=== PATIENT | female | born 1975 | race Caucasian/White ===

== ENCOUNTER → 2018-03-22 16:00 | Outpatient (CLI) | payer OTHER, SELFPAY ==
--- NOTE | 2018-03-22 16:18 | EKG12_ITS ---
Test Reason : PRE OP Blood Pressure : / mmHG Vent. Rate : 087 BPM Atrial Rate : 087 BPM P-R Int : 120 ms QRS Dur : 076 ms QT Int : 366 ms P-R-T Axes : 064 074 057 degrees QTc Int : 440 ms Normal sinus rhythm with sinus arrhythmia Normal ECG Confirmed by JUAN JOSE STALEY, VALERIE ([id number]), editor managing director GINI JACOBS ([id number]) on 03/25/2018 2:12:38 PM Referred By: Jalen Dumont Confirmed By:VALERIE INGRAM MD
--- NOTE | 2018-03-22 16:30 | RAD_ITS ---
STUDY: X-RAY CHEST REASON FOR EXAM: Female, 42 years old. Preoperative exam TECHNIQUE: Frontal and lateral views of the chest COMPARISON: None. FINDINGS: The lungs are clear. There are no pleural effusions. There is no pneumothorax. The heart is normal in size. The visualized osseous structures are within normal limits. RAD/Chest PA and Lateral IMPRESSION: No acute thoracic pathology. Electronically Signed: Jong Santoro, at 21:40 EDT Tel , Service support ,
[2018-03-22 17:37] LABS: Hemoglobin 12.6 g/dl (12.0-15.0); Mean Corp Hgb Conc 33.2 g/gl (32-36); Mean Corpuscular Hgb 26.8 pg (27.0-32.0); Mean Corpuscular Volume 80.7 fL (81-99); Mean Platelet Vol. 10.3 fl (6.2-12.0); Platelet Count 374 K/mm3 (150-450); RBC Distribution Width CV 16.1 % (11.6-14.6); Red Blood Count 4.71 M/mm3 (4.2-5.4); White Blood Count 11.5 K/mm3 (4.4-11.0)
[2018-03-22 17:42] LABS: Scan Indicated on CBC? Y/N NO
[2018-03-22 17:57] LABS: Anion Gap 10 (5-15); BUN 16 mg/dL (7-18); BUN/Creat Ratio 16.2 RATIO (10-20); Calcium,Total 9.1 mg/dL (8.5-10.1); Chloride 108 mmol/L (98-107); Creatinine, Serum 0.98 mg/dL (0.55-1.02); EST Glomerular Filtration Rate 65 mL/min (>60); Est Glom Filt Rate - Afr Amer 79 mL/min (>60); Glucose 92 mg/dL (74-106); Potassium 3.8 mmol/L (3.5-5.1); Sodium Level 145 mmol/L (136-145)
== END ==
PROVIDERS: Family Provider Nurse Practitioner Family; PCP Nurse Practitioner Family; Visit Provider Orthopaedic Surgery
DX: Z01.818 Encounter for other preprocedural examination (principal); F17.200 Nicotine dependence, unspecified, uncomplicated; Z79.899 Other long term (current) drug therapy
CPT/HCPCS: 36415; 71046; 80048; 85027; 93005

== ENCOUNTER 2021-10-31 09:21 | Emergency (ER) | payer OTHER, SELFPAY ==
[2021-10-31 09:22] VITALS: BP 127/84; PULSE 115; RESP 16; TEMP 36.2; O2SAT 98; BMI 33.3
--- NOTE | 2021-10-31 10:03 | CT_ITS ---
STUDY: CT ABDOMEN AND PELVIS WITH CONTRAST REASON FOR EXAM: Female, 46 years old. llq pain RADIATION DOSAGE (If Supplied By Facility): CTDIvol = ( 16.71 ) mGy, DLP = ( 1059.75 ) mGycm TECHNIQUE: Transaxial images were obtained from the dome of the diaphragm to the symphysis pubis without oral contrast. IV 100mL Isovue-300 was administered. Sagittal and coronal images were reconstructed. Individualized dose optimization techniques were used for this CT. COMPARISON: None. FINDINGS: The visualized lung bases are unremarkable. The visualized portions of the heart are within normal limits. Normal liver. Cholecystectomy. Normal spleen. Normal pancreas. Normal bilateral adrenal glands. Bilateral simple appearing renal cysts. No required imaging follow-up needed given high likelihood of benign nature. Nonobstructing 4 mm calculus of the left kidney. Normal visualized stomach. Normal small intestine. The left colon is nondistended and limited in evaluation but no pericolonic stranding is seen. There is non-visualization of the appendix. There is diffuse atherosclerotic calcification of the abdominal aorta, without a demonstrated aneurysm. Normal inferior vena cava. Normal retroperitoneum. Normal urinary bladder. There is absence of the uterus consistent with a prior hysterectomy. Normal abdominal wall. Mild degenerative changes of the lumbar spine. CT/Abdomen/Pelvis W IV Cont ONLY IMPRESSION: 1. No acute inflammatory process or bowel obstruction. Electronically Signed: Nicholsa Byrne MD (Brooks) at 11:14 EST , Service support ,
--- NOTE | 2021-10-31 10:04 | EDS_ITS ---
HPI History of Present Illness Chief Complaint: Other, Pain/Inj Informant: patient Narrative Narrative: 46-year-old female presents the emergency room with left lower quadrant abdominal pain. She tells me that for the past several months she has believe she has had a hernia there. She notes that just a couple days ago however it became painful. No vomiting and she has been having bowel movements. No urinary symptoms. She went to urgent care and was advised to come to the emergency room. She has not sought evaluation for this before. She notes that it is worse with standing and worse at the end of the day PFSH PFS Medical History no medical history Home Medications cyclobenzaprine [Flexeril] 5 mg PO QHS PRN 10/31/21 [History Last Taken Unknown] escitalopram oxalate 10 mg PO DAILY 10/31/21 [History Last Taken Unknown] metoprolol tartrate 50 mg PO DAILY 10/31/21 [History Last Taken Unknown] Allergy/AdvReac Type Severity Reaction Status Date / Time No Known Allergies Allergy Verified 10/31/21 09:24 Social History (Updated 10/31/21 @ 10:[address] Chuckie Huffman, ) Smoking Status: Current every day smoker tobacco type: cigarettes substance use type: does not use ROS ROS ED Constitutional Constitutional ED: Denies chills, fever(s) or weight loss Eyes Eyes: Denies change in vision or diplopia ENT ENT ED: Denies ear pain, rhinorrhea or sore throat Cardiovascular Cardiovascular: Denies chest pain, orthopnea, palpitations or racing heartbeat Respiratory/Chest Respiratory/Chest: Denies cough, dyspnea or orthopnea Gastrointestinal Gastrointestinal: Reports abdominal pain; Denies constipation, diarrhea, nausea or vomiting Genitourinary Genitourinary ED: Denies dysuria, hematuria or urinary frequency Musculoskeletal Musculoskeletal: Denies arthralgias or myalgias Integumentary Denies abscess or rash Neurologic Neurologic: Denies headache(s) or weakness Psychiatric Psychiatric: Denies anxiety, depression, suicidal ideation or suicidal thoughts Endocrine Endocrinology: Denies polydipsia, polyphagia or polyuria Allergic/Immunologic Allergic/Immunologic ED: Denies mouth swelling, tongue swelling or urticaria EXAM Physical Exam Const Vital Signs: 10/31/21 09:22 10/31/21 09:32 10/31/21 11:22 Temperature 97.2 F L Temperature Source Temporal Pulse Rate 115 H Respiratory Rate 16 16 Respiratory Effort Normal Non-Labored Respiratory Pattern Normal Blood Pressure 127/84 H Blood Pressure Mean 98 Pulse Ox 98 Oxygen Delivery Method Room Air Room Air Positive well nourished, well developed and obese General Appearance ED: well developed Nutritional Appearance: obese HEENT Reports normocephalic, head/scalp atraumatic, TM's clear and moist mucous membranes Negative for trauma Tympanic Membrane ED: Yes TM's clear Eyes PERRL and EOMs intact bilaterally Neck no lymphadenopathy, supple and no JVD Resp normal respiratory effort and clear to auscultation bilaterally Cardio regular rate, regular rhythm and no murmurs GI Palpation: soft and tender LLQ Back/Spine no CVA tenderness and normal ROM Extremity normal to inspection General Extremety ED: Negative for edema General Extremity: Negative for edema Neuro oriented x3 and CN's II-XII intact bilaterally Sensorium / Orientation: alert Motor Exam: strength 5/5 throughout Psych mental status grossly normal Mood & Affect: Negative for depressed or tearful Skin no rashes or lesions noted and no wounds MDM MDM MDM Narrative Medical decision making narrative: I do not really palpate a hernia at this time. CT does not show anything to explain why she would be hurting there. I think it would be worthwhile for her to visit with one of the surgeons as an outpatient. I can write for some pain medication return if worsening or co [facility] Lab Data Labs: Laboratory Results - last 24 hr 10/31/21 10/31/21 10/31/21 10:30 10:30 10:30 WBC 8.4 RBC 4.60 Hgb 12.6 Hct 38.6 MCV 83.9 MCH 27.4 MCHC 32.6 RDW Std Deviation 49.2 H RDW Coeff of Mohini 16.1 H Plt Count 390 MPV 9.6 Immature Gran % (Auto) 0.400 Neut % (Auto) 62.1 Lymph % (Auto) 22.9 [place] % (Auto) 7.8 Eos % (Auto) 5.8 H Baso % (Auto) 1.0 Absolute Neuts (auto) 5.2 Absolute Lymphs (auto) 1.93 Nucleated RBC % 0 Sodium 140 Potassium 4.2 Chloride 109 H Carbon Dioxide 22.0 Anion Gap 9 BUN 12 Creatinine 0.87 Estim Creat Clear Calc 63.22 Est GFR (MDRD) Af Amer 90 Est GFR (MDRD) Non-Af 74 BUN/Creatinine Ratio 13.8 Glucose 90 Lactic Acid 1.0 Calcium 8.9 Total Bilirubin 0.30 AST 54 H ALT 80 H Alkaline Phosphatase 76 Total Protein 7.7 Albumin 3.7 Globulin 4.0 Albumin/Globulin Ratio 0.9 Radiography Diagnostic Testing: Clinical Impression(s) from Imaging Studies Abdomen/Pelvis CT 10/31/21 10:03 IMPRESSION: 1. No acute inflammatory process or bowel obstruction. Electronically Signed: Nicholas Byrne MD (Brooks) at 11:14 EST , Service support , Discharge Plan Triage Chief Complaint: Other, Pain/Inj ED Provider: Chuckie Huffman Dx/Rx/DC Orders Clinical Impression: Abdominal pain Instructions: ED Hernia (Adult) Prescriptions: No Action metoprolol tartrate 50 mg Tablet 50 mg PO DAILY RF: 0 escitalopram oxalate 10 mg tablet 10 mg PO DAILY RF: 0 cyclobenzaprine [Flexeril] 5 mg Tablet 5 mg PO QHS PRN (Reason: Pain) RF: 0 Primary Care Provider: Virginia Singleton Referrals: Virginia Singleton DO [Primary Care Provider] - Regulo Valderrama MD [STAFF PHYSICIAN] - As soon as possible Disposition Disposition: Home, Self Care
[2021-10-31 10:41] LABS: Absolute Lymphocyte Count 1.93 X10^3/uL (0.83-4.51); Absolute Neutrophil Count 5.2 X10^3/uL (2.0-7.7); Basophil# 0.08 X10^3/uL; Eosinophil# 0.49 X10^3/uL; Eosinophils% 5.8 % (0-5); Hematocrit 38.6 % (37-47); Hemoglobin 12.6 g/dL (12.0-15.0); Lymphocyte # 1.93 X10^3/ul (0.83-4.51); Lymphocyte % 22.9 % (19-41); Mean Corp Hgb Conc 32.6 g/dL (32-36); Mean Corpuscular Hgb 27.4 pg (27.0-32.0); Mean Corpuscular Volume 83.9 fL (81-99); Mean Platelet Vol. 9.6 fl (6.2-12.0); Monocyte# 0.66 X10^3/uL; Monocyte% 7.8 % (0-10); NRBC Flagged by Analyzer 0 % (0-5); Neutrophil # 5.22 X10^3/uL (2.7-7.7); Neutrophil % 62.1 % (47-70); Platelet Count 390 K/mm3 (150-450); RBC Distribution Width CV 16.1 % (11.6-14.6); RBC Distribution Width SD 49.2 fl (35.1-43.9); White Blood Count 8.4 K/mm3 (4.4-11.0)
[2021-10-31] MEDS: 0.9% Normal Saline 1,000 ML 1000 ML IV (10:55)
[2021-10-31 11:09] LABS: ALB/GLOB Ratio 0.9 RATIO (0.9-2.4); AST(SGOT) 54 U/L (15-37); Alanine Aminotransfer ALT/SGPT 80 U/L (13-56); Albumin, Serum 3.7 g/dL (3.2-5.0); Alkaline Phosphatase 76 U/L (45-117); Anion Gap 9 (5-15); BUN 12 mg/dL (7-18); BUN/Creat Ratio 13.8 RATIO (10-20); Calcium,Total 8.9 mg/dL (8.5-10.1); Chloride 109 mmol/L (98-107); Creatinine, Serum 0.87 mg/dL (0.55-1.02); EST Glomerular Filtration Rate 74 mL/min (>60); Est Glom Filt Rate - Afr Amer 90 mL/min (>60); Estimated Creatinine Clearance 63.22 ml/min; Glucose 90 mg/dL (74-106); Potassium 4.2 mmol/L (3.5-5.1); Protein, Total 7.7 g/dL (6.4-8.2); Sodium Level 140 mmol/L (136-145)
[2021-10-31 11:22] VITALS: RESP 16
[2021-10-31 12:03] VITALS: PULSE 88; RESP 17; O2SAT 97
== END 2021-10-31 12:05 | disposition home or self-care (01) ==
PROVIDERS: Emergency Provider Emergency Medicine; PCP Family Medicine
DX: R10.32 Left lower quadrant pain (principal); E66.9 Obesity, unspecified; F17.210 Nicotine dependence, cigarettes, uncomplicated; Z79.899 Other long term (current) drug therapy
CPT/HCPCS: 74177; 80053; 83605; 85025; 99284; J7030; Q9967; A4216

== ENCOUNTER 2021-11-24 05:51 | Day surgery (SDC) | payer OTHER, SELFPAY ==
--- NOTE | 2021-11-10 08:57 | EKG12_ITS ---
Test Reason : PRE-OP Blood Pressure : / mmHG Vent. Rate : 087 BPM Atrial Rate : 087 BPM P-R Int : 122 ms QRS Dur : 074 ms QT Int : 376 ms P-R-T Axes : 069 085 073 degrees QTc Int : 452 ms Normal sinus rhythm Normal ECG Confirmed by JUAN JOSE STALEY, VALERIE ([id number]), design editor KARINE MONCADA ([id number]) on 11/11/2021 9:37:00 AM Referred By: Regulo Valderrama Confirmed By:VALERIE INGRAM MD
[2021-11-24] VITALS (9 sets, daily range): BP systolic 126–156; BP diastolic 78–109; PULSE 65–118; RESP 16–20; TEMP 36.3–37.2; O2SAT 85–100; BMI 33.0
[2021-11-24] MEDS: Lactated Ringers 1,000 ML 15 ML IV ×2 (06:39→10:03)
--- NOTE | 2021-11-24 07:34 | HP.PCM_ITS ---
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 Regulo Valderrama MD) Endometriosis Surgical History (Updated 11/03/21 @ 09:52 by Nanci Jaime) S/P section S/P exploratory laparotomy S/P laparoscopic cholecystectomy S/P laparoscopic hysterectomy Family History (Updated 11/03/21 @ 09:53 by Nanci Jaime) Mother Asthma Grandmother Hypertension Cancer skin Social History (Updated 11/03/21 @ 09:53 by Nanci Jaime) Smoking Status: Current every day smoker tobacco type: cigarettes Electronic Cigarette Use: with nicotine substance use type: does not use HPI HPI HPI: YMAILE BARNETT, is a 46 F who presents to the office today for left lower quadrant pain. Patient reports that last few months she has been experiencing left lower quadrant pain that feels like pulling. Patient has had endometriosis in the past but reports this pain is constant and does not change with the time of month. Patient has also had other intra-abdominal surgeries. ROS General General: Yes weight change; No appetite, fatigue, colon cancer, breast cancer or weakness HEENT HEENT: No difficulty swallowing, eye injury, eye surgery, swollen glands or hoarseness Endo Endocrine: No thyroid disease, diabetes mellitus, thyroid cancer, Hair loss, heat intolerance or cold intolerance Skin Skin: No rash or changing moles Breast Breast: No left breast lump, right breast lump, nipple discharge, breast pain, abnormal mammogram, abnormal US or breast enlargement Musc Musculoskeletal: Yes back problems; No arthritis, rheumatoid arthritis, gout or joint pain Cardio Cardiovascular: No murmur, pacemaker, heart disease, atrial fibrillation, high blood pressure, heart attack, heart stent, palpitations, shortness of breat with exertion or chest pain Psych Psychiatric: No depression, anxiety or hearing voices Resp Respiratory: No shortness of breath, No sleep apnea, No cough, No COPD, No asthma, No emphysema and No wheezing Gastro Gastrointestinal: Yes abdominal pain, Yes nausea or vomiting, Yes diarrhea, Yes constipation, No blood in stool, Yes acid reflux, No hemorrhoids, No ulcers, No gallbladder problem and No black,tarry stools Roland Hematologic: No blood thinners, No blood disorders, No bleeding, No anemia and No blood clots Neuro Neurologic: No system reviewed and no additional complaints, except as documented, No as per HPI, No abnormal gait, No abnormal hearing, No abnormal movements, No abnormal speech, No behavioral changes, No burning sensations, No confusion, No convulsions, No disequilibrium, No dizziness, No localized weakness, No frequent falls, No headache(s), No lack of coordination, No loss of vision, No memory loss, No numbness, No other visual disturbances, No radicular pain, No restless legs, No sensory deficit, No syncope, No tingling, No tremor (s), No weakness and No other Exam Const General: cooperative Orientation: alert and oriented x3 HENMT Head: normal to inspection Neck Neck: normal visual inspection and full ROM Chest Chest palpation & inspection: normal inspection of the chest Resp Effort & Inspection: normal respiratory effort Auscultation: clear to auscultation bilaterally Cardio Rate: regular rate Rhythm: regular rhythm GI Inspection: non-distended Palpation: soft and tender in the LLQ Skin General: no rashes or lesions noted Neuro General: patient alert and patient oriented x3 Extrem General: full ROM Psych Appearance: grossly normal Mental Status: mental status grossly normal Assessment and Plan Assessment and Plan (1) LLQ abdominal pain: Status: Acute Plan - Dr. Regulo Valderrama MD: The patient is having left lower quadrant pain and had a CT scan in the emergency room recently. Upon reviewing the CT scan I do see a small area that has a defect in the posterior fascial sheath which may be a spigelian hernia. The patient has had incisions in this area. Patient also may have adhesions or endometriosis causing his left lower quadrant pain. At this time I do not believe there is any other imaging studies that would help us but I did offer the patient exploratory laparoscopy. I discussed with her that this is an invasive procedure but if there was a spigelian hernia would be able to fix it at that time or if there were adhesions or endometriosis that can be dealt with at that time as well. I discussed the procedure in detail with her as well as laparoscopic hernia repair with mesh placement. I discussed the risks of this procedure including wound to bleeding, infection, injury to other organ such as the bowel bladder or other organ. I also discussed the possibility of normal laparoscopy. Patient understands all the risks and is willing to proceed. Regulo Valderrama MD Pager: [facility] [address] [place] [address], [address] [place] [address] Office: I have re-examined the patient. There are no clinical changes since date of exam.
[2021-11-24] MEDS: Cefotetan 2 GM in 0.9% NS 100 ML IV (07:35)
[2021-11-24] MEDS: Bupivacaine Mpf 0.5% 30 ML VIAL (08:24)
--- NOTE | 2021-11-24 09:33 | OP.PCM_ITS ---
Problems Associated Problem List Diagnoses (1) Spigelian hernia: (2) LLQ abdominal pain: Report of Operation Date of Procedure: 11/24/21 Pre-Operative Diagnosis: Left lower quadrant pain Post-Operative Diagnosis: 1. Left lower quadrant spigelian hernia 2. Left lower quadrant adhesions Surgery/Procedure Performed:: 1. Exploratory laparoscopy with left lower quadrant spigelian hernia repair with mesh 2. Lysis of adhesions Description of Surgical Findings:: Patient has beginning hernia left lower quadrant and she also had adhesions from the colon to the left ovary and lateral sidewall Description of Procedure: Patient was brought back to the operating room and general anesthesia was induced the abdomen was prepped and draped in usual sterile fashion. A midline incision was made in the skin and deepened to the fascia which was elevated and incised. A finger series was performed and a Canas port was placed into the abdomen. The abdomen was insufflated 15 mmHg. Camera was placed into the abdomen the abdomen is inspected. Patient was placed in Trendelenburg position and appeared to have a spigelian hernia in the left lower quadrant and also left lower quadrant adhesions. A 5 mm port was placed in the right lower quadrant and right upper quadrant direct visualization. Unsure as to which is the cause of her pain I elected to fix both. First Enseal was used to divide the adhesions from the colon to the left lateral sidewall. This created a bridge over the left ovary encasing it and scar tissue. The left ovary was dissected free of its adhesions as well and after the adhesions were taken down the colon was free from the ovary and left lateral sidewall. Next attention was paid to the left lower quadrant hernia. A 10 cm round ventral light ST mesh with echo positioning system was placed through the 10 mm port. A small gamal was made just over the hernia with a scalpel and a Benjamin-Steven needle was placed into the abdomen. The mesh was grasped and pulled through and the balloon was inflated. Next the mesh was tacked to the anterior abdominal wall using tacked circumferentially. This completely cover the spigelian hernia. The abdomen was once more inspected and then the ports were removed and the abdomen was allowed to desufflate. The midline fascia was closed with 0 Vicryl suture and all of the incisions were injected with local anesthetic. They were all closed with interrupted 4-0 Monocryl suture as well as Steri- Strips and bandages. Patient tolerated the procedure well and was brought to PACU in stable condition. Grafts/Implants Used: 10 cm round ventral light ST mesh Admit VTE Documentation VTE Mechan Device Prophylaxis: SCD's
--- NOTE | 2021-11-24 09:37 | EX.PCM.DISCH ---
Discharge Instructions Procedure Hernia Diet Discharge Diet: Light diet - advance as tolerated Activity Discharge Activity: May Not Drive (for 2-3 days or while taking narcotic pain meds.) and May Shower (with the bandage in place 1-2 days after surgery.) Lifting Restrictions: 20 pounds for 4 weeks. Additional Activity Instructions:: Climbing stairs is fine, walking is encouraged. Sitting in bed may be uncomfortable. Sitting up using your lateral muscles (sitting up sideways) is usually more comfortable. Do not drive, work heavy equipment of sign legal documents for 24 hours. Pain medications may cause nausea, you should typically eat light foods as you take your pain medications. Pain medications may also cause constipation. If you have difficulty with this, discuss with your doctor. Dressing / Incision Call your doctor if your incision/area has: Continuous Slow Oozing, Sudden Increased Bleeding, Increased Pain/ Swelling, Increased Redness and Foul Smelling Discharge Call your doctor if you observe: Fever of 101 or Higher Suture Line Care: Avoid Pulling/Pushing and Avoid Pinching/Bending Change Dressing in: 2 days Cleanse incision/area with: Soap & Water Follow Up Care Please Follow Up With: Regulo Valderrama MD When: Please call to schedule 1 week follow up appointment. [phone] Test Results: Test results from this visit will be discussed in further detail at your follow-up appointment, if applicable. Discharge Plan Admission Attending Provider: Regulo Valderrama Primary Care Provider: Virginia Singleton Discharge Orders/Prescriptions Prescriptions: New oxycodone-acetaminophen [Percocet] 5-325 mg tablet 1 - 2 tab PO Q6H PRN (Reason: pain) 5 Days Qty: 30 RF: 0 No Action metoprolol tartrate 50 mg Tablet 50 mg PO DAILY RF: 0 escitalopram oxalate 10 mg tablet 20 mg PO DAILY RF: 0 cyclobenzaprine [Flexeril] 5 mg Tablet 5 mg PO QHS PRN (Reason: Pain) RF: 0 hydroxyzine HCl 25 mg Tablet 25 mg PO BID PRN (Reason: Anxiety) RF: 0 pravastatin 20 mg Tablet 20 mg PO QHS RF: 0 Referrals / Follow Up: Virginia Singleton DO [Primary Care Provider] - Disposition Disposition (needs filled in before D/C Order can be placed): Home, Self Care
[2021-11-24] MEDS: Acetaminophen 325 MG Tablet PO (09:50)
[2021-11-24] MEDS: oxyCODONE 5 MG Tablet PO (09:50)
== END 2021-11-24 23:59 | disposition home or self-care (01) ==
LOC: SDC 05:51 → AC 05:51
PROVIDERS: PCP Family Medicine; Referring Provider Surgery; Visit Provider Surgery
PROC: (CPT 49320; principal; 2021-11-24 07:15)
DX: K43.9 Ventral hernia without obstruction or gangrene (principal); K66.0 Peritoneal adhesions (postprocedural) (postinfection); Z90.49 Acquired absence of other specified parts of digestive tract; F17.210 Nicotine dependence, cigarettes, uncomplicated; N80.9 Endometriosis, unspecified; F41.9 Anxiety disorder, unspecified; F32.A Depression, unspecified; E78.00 Pure hypercholesterolemia, unspecified; Z79.899 Other long term (current) drug therapy
CPT/HCPCS: 49652; 00750; 49329; 93005; J7120; C1760; J0330; J2405

== ENCOUNTER 2022-07-06 08:59 | Day surgery (SDC) | payer OTHER, SELFPAY ==
[2022-07-06] VITALS (7 sets, daily range): BP systolic 124–167; BP diastolic 80–104; PULSE 86–121; RESP 14–16; TEMP 36.5–36.7; O2SAT 96–100; BMI 33.2
[2022-07-06] MEDS: Lactated Ringers 1,000 ML 15 ML IV (09:45)
--- NOTE | 2022-07-06 10:44 | DCINST_ITS ---
Discharge Instructions Diet Discharge Diet: No restrictions Activity Discharge Activity: Return to Normal Activity Dressing / Incision Call your doctor if you observe: Fever of 101 or Higher, Inability to urinate and Inability to have a bowel movement Follow Up Care Please Follow Up With: Adore Serrano MD When: Call the office for appointment Test Results: Test results from this visit will be discussed in further detail at your follow- up appointment, if applicable. Discharge Plan Admission Attending Provider: Adore Serrano Primary Care Provider: Virginia Singleton Discharge Orders/Prescriptions Prescriptions: New ondansetron HCl [ondansetron HCl] 8 mg tablet 8 mg PO Q8H PRN PRN (Reason: Nausea) 7 Days Qty: 20 0RF oxycodone-acetaminophen [oxycodone-acetaminophen] 5-325 mg tablet 2 tab PO Q8H PRN PRN (Reason: Pain) 7 Days Qty: 20 0RF cephalexin [cephalexin] 500 mg capsule 500 mg PO Q12 3 Days Qty: 6 0RF phenazopyridine [Pyridium] 200 mg tablet 200 mg PO TID PRN PRN (Reason: Bladder Spasms) 7 Days Qty: 30 0RF Continued cyclobenzaprine 5 mg Tablet 5 mg PO QHS PRN (Reason: Pain) hydroxyzine HCl 25 mg Tablet 50 mg PO BID PRN (Reason: Anxiety) pravastatin 20 mg Tablet 40 mg PO QHS oxycodone-acetaminophen [Percocet] 5-325 mg tablet 1 - 2 tab PO Q6H PRN (Reason: pain) 5 Days Qty: 30 0RF citalopram 20 mg tablet 20 mg PO DAILY Label Comments: TAKE 1 TABLET BY MOUTH EVERY DAY FOR 14 DAYS. STOP LEXAPRO. atenolol 50 mg tablet 50 mg PO DAILY Label Comments: TAKE 1 TABLET BY MOUTH EVERY DAY - INCREASE DOSE Referrals / Follow Up: Virginia Singleton DO [Primary Care Provider] - Disposition Disposition (needs filled in before D/C Order can be placed): Home, Self Care
--- NOTE | 2022-07-06 10:47 | PCM.OPRPT ---
Report of Operation Date of Procedure: 07/06/22 Pre-Operative Diagnosis: Left ureteral calculus Post-Operative Diagnosis: Same Surgery/Procedure Performed:: Cystoscopy, left ureteroscopy, holmium laser lithotripsy, stone basket extraction, left ureteral stent insertion Surgeon: Adore Serrano Type of Anesthesia: General Specimen's removed: Stone fragments Description of Procedure: The patient is a 46-year-old female presented to the office after having been diagnosed with a proximal obstructing 5 mm ureteral calculus. Informed consent was obtained and she agreed to proceed with surgical intervention. The patient was taken to the operating room and placed on the operating room table. Anesthesia monitored the head, neck, airway, IV access and vital signs throughout the case. Once anesthesia was appropriately administered, the patient was placed into dorsal lithotomy position was prepped and draped in usual sterile fashion. At this time the cystoscope was inserted through the urethra into the urinary bladder under direct visualization. The bladder mucosa was visualized in its entirety and found to be without mass, erythema or abnormality. The left ureteral orifice was identified and intubated with an 8 Bolivian cone-tip catheter. A retrograde pyelogram was performed under fluoroscopic visualization revealing the stone was in a distal location. At this time the 0.035 Glidewire was inserted through the urethra and into the renal pelvis. The ureteroscope with the help of a 0.025 Glidewire was used to gently gain access to the stone in the distal ureter. The stone was then broken into several small pieces using a 270 ?m laser fiber. The pieces were removed using a stone basket. When ureteroscopy revealed no evidence of any further stone fragments, the indwelling safety wire was used for placement of a 6 [place]ian 24 cm JJ stent with good positioning in the renal pelvis as well as the urinary bladder. The patient's bladder was then emptied and the case was terminated. She was awakened and taken to the recovery room in good condition. There were no complications during this procedure. Grafts/Implants Used: 6 x 24 JJ stent Complications None Admit VTE Documentation VTE Present on Admission: Yes VTE Mechan Device Prophylaxis: SCD's VTE Pharm Prophylaxis ordered?: No Reason prophylaxis not ordered:: Treatment Not Indicated
[2022-07-06] MEDS: Cefazolin 2 GM in 0.9% Normal Saline 100 ML IV (10:55)
--- NOTE | 2022-07-06 11:43 | CALC_PTH ---
PATIENT: YAMILE BARNETT LOC: [facility] [place][id number] AGE/SX: 46/F ROOM: RE07/06/[address]: Dr. Adore Serrano MD : 1975 BED: DIS: 07/06/2022 SPEC #: [id number] RECD: 07/06/22 12:19 STATUS: RACHEL ADAMS #: [id number] ROSEMARY: 07/06/22 11:[address]: Adore Serrano DEPT: SURGICAL PATHOLOGY RECD BY: Cass Rivera ENTERED: 07/06/22 12:19 SP TYPE: Calculi OTHR DR: Dr. Virginia Singleton, DO Tissues: CALCULI Procedures: Surgery Specimen Level I HEADER OPERATION: Cysto, ureteroscopy, laser, stent PRE-OP DIAGNOSIS: Ureteral calculus, hydronephrosis, black pain TISSUE SUBMITTED: Calculi GROSS DIAGNOSIS Fragments of stone, clinically left ureteral calculi, submitted for analysis. ZACH:hilaria 07/06/2022 COMMENT The specimen is submitted in its entirety for chemical stone analysis. The results from this study will be reported separately. GROSS DESCRIPTION Received without fixative labeled with the patient's name and designated left ureteral calculi. The specimen consists of multiple fragments of black stone measuring in aggregate 0.5 x 0.2 x 0.1 cm. The entire specimen is submitted for stone analysis. / ZACH:hilaria 07/06/2022 CPT: 62919
[2022-09-10 21:32] LABS: Source LEFT URETER
== END 2022-07-06 13:20 | disposition home or self-care (01) ==
LOC: SDC 09:02 → AC 09:03
PROVIDERS: PCP Family Medicine; Referring Provider Urology; Visit Provider Urology
PROC: 0TJ98ZZ Inspection of Ureter, Via Natural or Artificial Opening Endoscopic (ICD-10-PCS; CPT 52352; principal; 2022-07-06 10:40)
DX: N20.1 Calculus of ureter (principal); Z87.442 Personal history of urinary calculi; F32.9 Major depressive disorder, single episode, unspecified; F41.9 Anxiety disorder, unspecified; E78.00 Pure hypercholesterolemia, unspecified; Z79.899 Other long term (current) drug therapy
CPT/HCPCS: 52356; 00918; 76000; 82360; 88300; J7120; C2617; J2405

== ENCOUNTER 2023-11-07 05:58 | Day surgery (SDC) | payer OTHER, SELFPAY ==
[2023-11-07] VITALS (7 sets, daily range): BP systolic 119–172; BP diastolic 76–90; PULSE 69–77; RESP 16–18; TEMP 36.3–36.9; O2SAT 93–99; BMI 23.8
--- OUTSIDE RECORDS SUMMARY | 2023-11-07 06:12 | XMS RPT_ITS | CCD ---
Author Name Unknown Address [address] [facility] [place] [id number] Organization [facility] Care Team Providers Care Soakers Supervisor Name Role Phone ARNALDO PHILLIPS DO Primary Care Physician [place] PT, Rylie Unavailable Unavailable DANILO STEVENS Attending Unavailable ARNALDO PHILLIPS DO Primary Care Unavailable MICHAEL BERG MD Attending Unavail able ARNALDO PHILLIPS DO Primary Care Unavailable ARNALDO PHILLIPS DO Attending Unavailable ARNALDO PHILLIPS DO Primary Care Unavailable ARNALDO PHILLIPS DO Attending Unavailable ARNALDO PHILLIPS DO Primary Care Unavailable ARNALDO PHILLIPS DO Attending Unavailable ARNALDO PHILLIPS DO Primary Care Unavailable ARNALDO PHILLIPS DO Attending Unavailable ARNALDO PHILLIPS DO Primary Care Unavailable Allergies Allergy Classification Reported Allergen(s) Allergy Type Date of Onset Reaction(s) Facility (5 sources) Simvastatin; Translations: [simvastatin] Drug Allergy Muscle pain (finding) [facility] Work Phone: Medications Current Medications Medication Drug Class(es) Dates Sig (Normalized) Sig (Original) 0.5 ML tirzepatide 10 MG/ML Auto-Injector [Mounjaro] (2 sources) Start: 11-09-2022 inject 0.5 mL by subcutaneous injection every week Mounjaro 5 mg/0.5 mL subcutaneous solution inject 0.5ml SUBCUTANEOUSLY ONCE WEEKLY Start Date: 11/09/22 Status: Ordered acetaminophen 325 mg / HYDROcodone bitartrate 5 mg oral tablet (1 source) Opioid Agonist Start: 06-18-2022 End: 06-23-2022 take 1 tablet by mouth every six hours as needed for pain [place] 325- 5 mg oral tablet Dose = 1 tab(s), Oral, q6hr, PRN as needed for pain, X 5 day(s), # 12 tab(s), 0 Refill(s), Ureteral stone, 84.1 Start Date: 06/18/22 Stop Date: 06/23/22 Status: Ordered acetaminophen 325 mg / oxyCODONE hydrochloride 5 mg oral tablet (1 source) Opioid Agonist Start: 06-23-2022 End: 06-28-2022 take 1 tablet by mouth every six hours as needed for pain Percocet 5 mg-325 mg oral tablet Dose = 1 tab(s), Oral, q6h, PRN for pain, X 5 day(s), # 20 tab(s), 0 Refill(s), Urethral stone, 84.1 Start Date: 06/23/22 Stop Date: 06/28/22 Status: Ordered atenolol 50 mg oral tablet (5 sources) beta-Adrenergic Ricardo Start: 06-06-2023 atenolol 50 mg oral tablet Dose : 50 mg = 1 tab(s), Oral, qDay, # 90 tab(s), 1 Refill(s), Pharmacy: [facility]/pharmacy #[id number], HTN (hypertension) Hypertension, 156.5, cm, 06/06/23 8:10:00 EDT, Height, kg, 06/06/23 8:10:00 EDT, Dosing Weight Start Date: 06/06/23 Status: Ordered Problems Problem Classification Problem Date Documented Date Episodic/Chronic Anxiety disorders (5 sources) Anxiety 06-17-2019 Chronic Calculus of urinary tract (2 sources) Ureteric stone; Translations: [Calculus of ureter] Onset: 06-18-2022 Episodic Cardiac dysrhythmias (5 sources) Tachycardia 11-30-2020 Episodic Disorders of lipid metabolism (5 sources) Hyperlipidemia 01-07-2020 Chronic Essential hypertension (7 sources) Hypertensive disorder; Translations: [Essential (primary) hypertension] Onset: 06-06-2023 11-30-2020 Chronic Lymphadenitis (5 sources) Localized enlarged lymph nodes 12-09-2019 Episodic Menopausal disorders (2 sources) Menopausal flushing 11-09-2022 Chronic Mood disorders (5 sources) Depressive disorder; Translations: [Recurrent major depressive episodes, mild ] 06-17-2019 Chronic Nonmalignant breast conditions (5 sources) Pain of breast 04-25-2021 Episodic Other connective tissue disease (5 sources) Nocturnal muscle spasm 06-19-2019 Chronic Other nervous system disorders (2 sources) Paresthesia of hand 06-06-2023 Episodic Other screening for suspected conditions (not mental disorders or infectious disease) (9 sources) Mammography abnormal; Translations: [Viral screening status] 11-30-2020 Episodic Other skin disorders (5 sources) Neck swelling 12-02-2019 Episodic Geovanna-; endo-; and myocarditis; cardiomyopathy (except that caused by tuberculosis or sexually transmitted disease) (5 sources) Ejection murmur 12-02-2019 Chronic Residual codes; unclassified (5 sources) Needs influenza immunization 08-30-2021 Episodic Residual codes; unclassified (5 sources) Requires diphtheria, tetanus and pertussis vaccination 08-29-2019 Episodic Unclassified (18 sources) Patient encounter status 08-29-2019 Results Test Name Value Interpretation Reference Range Facil ity Vital Signs Date Time Vital Sign Value Performing Clinician Faci lity 06-23-2022 16:26-0400 Diastolic blood pressure 68 mm[Hg] MICHAEL BERG MD [facility] 06-23-2022 16:26-0400 Heart rate 74 /min MICHAEL BERG MD [facility] 06-23-2022 16:26-0400 Mean blood pressure 86 mm[Hg] MICHAEL BERG MD [facility] 06-23-2022 16:26-0400 Respiratory rate 18 /min MICHAEL BERG MD [facility] 06-23-2022 16:26-0400 Systolic blood pressure 122 mm[Hg] MICHAEL BERG MD [facility] 06-23-2022 13:52-0400 Body temperature 97.16 [degF] MICHAEL BERG MD [facility] 06-23-2022 13:52-0400 Diastolic blood pressure 79 mm[Hg] MICHAEL BERG MD [facility] 06-23-2022 13:52-0400 Heart rate 91 /min MICHAEL BERG MD [facility] 06-23-2022 13:52-0400 Respiratory rate 18 /min MICHAEL BERG MD [facility] 06-23-2022 13:52-0400 Systolic blood pressure 154 mm[Hg] MICHAEL BERG MD [facility] 06-18-2022 12:24-0400 Body temperature 97.7 [degF] DANILO DURESKA DO [facility] 06-18-2022 12:24-0400 Diastolic blood pressure 91 mm[Hg] DANILO DURESKA DO [facility] 06-18-2022 12:24-0400 Heart rate 85 /min DANILO DURESKA DO [facility] 06-18-2022 12:24-0400 Respiratory rate 18 /min DANILO MENDELKA DO [facility] 06-18-2022 12:24-0400 Systolic blood pressure 143 mm[Hg] DANILO DURESKA DO [facility] Encounters Encounter Date Encounter Type Care Provider Facility Start: 06-20-2023 End: 06-20-2023 Minor Procedure ARNALDO PHILLIPS DO [facility] Start: 06-11-2023 ambulatory ARNALDO PHILLIPS DO Fac ility:B Start: 06-11-2023 ambulatory ARNALDO M ALAN DO Fac ility:A Start: 06-06-2023 End: 06-11-2023 ambulatory ARNALDO M ALAN Facility:B Start: 06-06-2023 End: 06-10-2023 Outreach Lab ARNALDO Hewitt ALAN DO [facility] Start: 08-09-2022 End: 08-10-2022 ambulatory ARNALDO Hewitt ALAN DO Facility:B Start: 06-23-2022 End: 06-23-2022 Emergency department patient visit MICHAEL BERG MD Facility:B Start: 06-23-2022 End: 06-23-2022 Emergency department patient visit MICHAEL BERG MD [facility] Start: 06-18-2022 End: 06-18-2022 Emergency department patient visit DANILO STEVENS Facility:B Start: 06-18-2022 End: 06-18-2022 Emergency department patient visit DANILO STEVENS DO [facility] Start: 01-09-2022 End: 01-09-2022 Patient encounter procedure ARNALDO PHILLIPS DO [facility] Procedures Date Procedure Procedure Detail Performing Clinician Start: 07-06-2022 Placement of stent SHERRYAFSHAN KEARNEY ALAN DO Immunizations Immunization Date Immunization Notes Care Provider Fa cili 10-31-2021 SARS-CoV-2 (COVID-19 ) mRNA-[id number] vaccine ARNALDO PHILLIPS DO [facility] 12-02-2020 SARS-CoV-2 (COVID-19 ) [id number] vaccine ARNALDO PHILLIPS DO [facility] 11-03-2020 SARS-CoV-2 (COVID-19 ) [id number] vaccine ARNALDO PHILLIPS DO [facility] 08-29-2019 tetanus toxoid, redu ranjith diphtheria toxoid, and acellular pertussis vaccine, adsorbed; Translations: [Boostrix (Tdap)] ARNALDO ALAN DO [facility] Payers Date Payer Category Payer Private Health Insurance [id number] 2022 Unknown [id number] 2022 Unknown [id number] 1975 Unknown [id number] 1974 Unknown [id number] [id number] 1974 Unknown [id number] 2.16.8 [id number] 1974 Unknown [id number] [id number] [id number] 1974 Unknown [id number] 2.16.8 [id number] 1974 Unknown [id number] [id number] Social History Date Type Detail Facility Start: 06-24-2021 Ex-smoker (finding) [facility] Sex Assigned At Female [facility] Functional Status Date Assessment Result Facility 06-23-2022 Functional Status Independent [place] Chadwick hernandez [facility] 06-23-2022 Functional Status Standard Safet y ID band on, Allergy Band on, Call device within reach, Bed in low position, Wheels locked, Upper/Half-Length side-rails up, Phone within reach, personal items within reach [facility] 06-18-2022 Functional Status Independent [facility] 06-18-2022 Functional Status Standard Safet y ID band on, Allergy Band on, Call device within reach, Bed in low position, Wheels locked, Upper/Half-Length side-rails up, Phone within reach, personal items within reach, Assistive devices within reach, Toileting device within reach, Bedside Cart Locked, Visitor at bedside, Safety level maintained [facility] Mental Status Date Assessment Result Facility 06-23-2022 Mental Status Orientation Oriented x 4 [facility] 06-23-2022 Mental Status [facility] 06-18-2022 Mental Status Orientation Oriented x 4 [facility] 06-18-2022 Mental Status [facility] Clinical Notes 12-29-2020 to 06-23-2022 LaboratoryLaboratoryLaboratoryRadiologyLaboratory Note Date & Type Note Facility 06-23-2022 Hospital Discharge instructions Patient Education 06/23/2022 16:23:39 Kidney Stone w/ Colic Kidney Stone with Pain The sharp cramping pain on either side of your lower back and nausea/vomiting that you have are because of a small stone that has formed in the kidney. It is now passing down a narrow tube (ureter) on its way to your bladder. Once the stone reaches your bladder, the pain will often stop. But it may come back as the stone continues to pass out of the bladder and through the urethra. The stone may pass in your urine stream in one piece. The size may be 1/16 inch to 1/4 inch (1 mm to 6 mm). Or, the stone may break up into pieter fragments that you may not even notice. Once you have had a kidney stone, you are at risk of getting another one in the future. There are 4 types of kidney stones. Eighty percent are calcium stones mostly calcium oxalate but also some with calcium phosphate. The other 3 types include uric acid stones, struvite stones (from a preceding infection), and rarely, cystine stones. Most stones will pass on their own, but may take from a few hours to a few days. Sometimes the stone is too large to pass by itself. In that case, the healthcare provider will need to use other ways to remove the stone. These techniques include: Lithotripsy. This uses ultrasound waves to break up the stone. Ureteroscopy. This pushes a basket-like instrument through the urethra and bladder and into the ureter to pull out the stone. Various types of direct surgery through the skin Home care The following are general care guidelines: Drink plenty of fluids. This means at least 12, 8-ounce glasses of fluid mostly water a day. Each time you urinate, do so in a jar. Pour the urine from the jar through the strainer and into the toilet. Continue doing this until 24 hours after your pain stops. By then, if there was a kidney stone, it should pass from your bladder. Some stones dissolve into sand-like particles and pass right through the strainer. In that case, you won t ever see a stone. Save any stone that you find in the strainer and bring it to your healthcare provider to look at. It may be possible to stop certain types of stones from forming. For this reason, it is important to know what kind of stone you have. Try to stay as active as possible. This will help the stone pass. Don't stay in bed unless your pain keeps you from getting up. You may notice a red, pink, or brown color to your urine. This is normal while passing a kidney stone. If you develop pain, you may take ibuprofen or naproxen for pain, unless another medicine was prescribed. If you have chronic liver or kidney disease, talk with your healthcare provider before taking these medicines. Also talk with your provider if you've had a stomach ulcer or GI bleeding. Preventing stones Each year for the next 5 to 7 years, you are at risk that a new stone will form. Your risk is a 50% chance over this time period. The risk is higher if you have a family history of kidney stones or have certain chronic illnesses like hypertension, obesity, or diabetes. But you can make changes to your lifestyle and diet that can lower your risk for another stone. Most kidney stones are made of calcium. The following is advice for preventing another calcium stone. If you don t know the type of stone you have, follow this advice until the cause of your stone is found. Things that help: The most important thing you can do is to drink plenty of fluids each day. See home care above. Eat foods that contain phytates. These include wheat, rice, rye, barley, and beans. Phytates are substances that may lower your risk for any type of stone to form. Eat more fruits and vegetables. Choose those that are high in potassium. Eat foods high in natural citrate like fruit and low-sugar fruit juices. Having too little calcium in your diet can put you at risk for calcium kidney stones. Eat a normal amount of calcium in your diet and talk with your healthcare provider if you are taking calcium supplements. Cutting back on your calcium intake may raise your risk. New research shows that eating calcium-rich and oxalate-rich foods together lowers your risk for stones by binding the minerals in the stomach and intestines before they can reach the kidneys. Limit salt intake to 2 grams (1 teaspoon) per day. Use limited amounts when cooking, and don t add salt at the table. Processed and canned foods are usually high in salt. Spinach, rhubarb, peanuts, cashews, almonds, grapefruit, and grapefruit juice are all high oxalate foods. You should limit how much of these you eat. Or eat them with calcium-rich foods. These include dairy products, dark leafy greens, soy products, and calcium-enriched foods. Reducing the amount of animal meat and high protein foods in your diet may lower your risk for uric acid stones. Avoid excess sugar (sucrose) and fructose (sweetener in many soft drinks) in your diet. If you take vitamin C as a supplement, don't take more than 1,000 mg a day. A dietitian or your healthcare provider can give you information about changes in your diet that will help prevent more kidney stones from forming. Follow-up care Follow up with your healthcare provider, or as advised, if the pain lasts more than 48 hours. Talk with your provider about urine and blood tests to find out the cause of your stone. If you had an X-ray, CT scan, or other diagnostic test, you will be told of any new findings that may affect your care. Call 911 Call 911 if you have any of these: Weakness, dizziness, or fainting When to seek medical advice Call your healthcare provider right away if any of these occur: Pain that is not controlled by the medicine given Repeated vomiting or unable to keep down fluids Fever of 100.4 F (38 C) or higher, or as directed by your healthcare provider Passage of solid red or brown urine (can't see through it) or urine with lots of blood clots Foul-smelling or cloudy urine Unable to pass urine for 8 hours and increasing bladder pressure [id number] [employer]. [address] [place] [address], [place] [address]. All rights reserved. This information is not intended as a substitute for professional medical care. Always follow your healthcare professional's instructions. Follow Up Care 06/23/2022 13:48:37 With:ARNALDO PHILLIPS DO Address: [address] [place] [phone] When:2-4 days [facility] 06-23-2022 Note Discharge Instructions Thank you for allowing [place] to assist you with your healthcare needs. The following is important discharge information regarding your hospital visit. Diagnosis from Today's Visit Urethral stone What to Do Next Instructions from Your Care Team No qualifying data available. Post Acute Orders No qualifying data available. You Need to Schedule the Following Appointments Follow Up with ARNALDO PHILLIPS DO When Within 2-4 days Where: [address] [place] [phone] Allergies simvastatin (Myalgia) Medications Please ask your primary doctor or pharmacist before taking any other medication not listed, including over the counter drugs, herbal medications, vitamins and or supplements as they may interact with your home medications. What How Much When Why Instructions Last Dose New acetaminophen-oxyCODONE (Percocet 5 mg-325 mg oral tablet) 1 tab(s) by mouth Every 6 hours as needed for for pain Urethral stone Duration: 5 Days Printed Prescription Unchanged atenolol (atenolol 50 mg oral tablet) 1 tab(s) by mouth Once a day HTN (hypertension) Increased dose Unchanged citalopram (citalopram 40 mg oral tablet) 1 tab(s) by mouth Once a day Depression Anxiety Unchanged cyclobenzaprine (cyclobenzaprine 5 mg oral tablet) 1 tab(s) by mouth Three (3) times a day Night muscle spasms Duration: 30 Days Unchanged hydrOXYzine (hydrOXYzine hydrochloride 50 mg oral tablet) 1 tab(s) by mouth Three (3) times a day Anxiety Duration: 30 Days Unchanged pravastatin (pravastatin 40 mg oral tablet) 1 tab(s) by mouth Once a day Hyperlipidemia Increased dose Please take this list to your next doctor s visit. Bring all medications you take, including over the counter medications, herbals and other supplements with you to your doctor s visit. Patients and families are reminded to discard old lists and to update any records with all medication providers or retail pharmacies. Education Materials Kidney Stone with Pain The sharp cramping pain on either side of your lower back and nausea/vomiting that you have are because of a small stone that has formed in the kidney. It is now passing down a narrow tube (ureter) on its way to your bladder. Once the stone reaches your bladder, the pain will often stop. But it may come back as the stone continues to pass out of the bladder and through the urethra. The stone may pass in your urine stream in one piece. The size may be 1/16 inch to 1/4 inch (1 mm to 6 mm). Or, the stone may break up into pieter fragments that you may not even notice. Once you have had a kidney stone, you are at risk of getting another one in the future. There are 4 types of kidney stones. Eighty percent are calcium stones mostly calcium oxalate but also some with calcium phosphate. The other 3 types include uric acid stones, struvite stones (from a preceding infection), and rarely, cystine stones. Most stones will pass on their own, but may take from a few hours to a few days. Sometimes the stone is too large to pass by itself. In that case, the healthcare provider will need to use other ways to remove the stone. These techniques include: Lithotripsy. This uses ultrasound waves to break up the stone. Ureteroscopy. This pushes a basket-like instrument through the urethra and bladder and into the ureter to pull out the stone. Various types of direct surgery through the skin Home care The following are general care guidelines: Drink plenty of fluids. This means at least 12, 8-ounce glasses of fluid mostly water a day. Each time you urinate, do so in a jar. Pour the urine from the jar through the strainer and into the toilet. Continue doing this until 24 hours after your pain stops. By then, if there was a kidney stone, it should pass from your bladder. Some stones dissolve into sand-like particles and pass right through the strainer. In that case, you won t ever see a stone. Save any stone that you find in the strainer and bring it to your healthcare provider to look at. It may be possible to stop certain types of stones from forming. For this reason, it is important to know what kind of stone you have. Try to stay as active as possible. This will help the stone pass. Don't stay in bed unless your pain keeps you from getting up. You may notice a red, pink, or brown color to your urine. This is normal while passing a kidney stone. If you develop pain, you may take ibuprofen or naproxen for pain, unless another medicine was prescribed. If you have chronic liver or kidney disease, talk with your healthcare provider before taking these medicines. Also talk with your provider if you've had a stomach ulcer or GI bleeding. Preventing stones Each year for the next 5 to 7 years, you are at risk that a new stone will form. Your risk is a 50% chance over this time period. The risk is higher if you have a family history of kidney stones or have certain chronic illnesses like hypertension, obesity, or diabetes. But you can make changes to your lifestyle and diet that can lower your risk for another stone. Most kidney stones are made of calcium. The following is advice for preventing another calcium stone. If you don t know the type of stone you have, follow this advice until the cause of your stone is found. Things that help: The most important thing you can do is to drink plenty of fluids each day. See home care above. Eat foods that contain phytates. These include wheat, rice, rye, barley, and beans. Phytates are substances that may lower your risk for any type of stone to form. Eat more fruits and vegetables. Choose those that are high in potassium. Eat foods high in natural citrate like fruit and low-sugar fruit juices. Having too little calcium in your diet can put you at risk for calcium kidney stones. Eat a normal amount of calcium in your diet and talk with your healthcare provider if you are taking calcium supplements. Cutting back on your calcium intake may raise your risk. New research shows that eating calcium-rich and oxalate-rich foods together lowers your risk for stones by binding the minerals in the stomach and intestines before they can reach the kidneys. Limit salt intake to 2 grams (1 teaspoon) per day. Use limited amounts when cooking, and don t add salt at the table. Processed and canned foods are usually high in salt. Spinach, rhubarb, peanuts, cashews, almonds, grapefruit, and grapefruit juice are all high oxalate foods. You should limit how much of these you eat. Or eat them with calcium-rich foods. These include dairy products, dark leafy greens, soy products, and calcium-enriched foods. Reducing the amount of animal meat and high protein foods in your diet may lower your risk for uric acid stones. Avoid excess sugar (sucrose) and fructose (sweetener in many soft drinks) in your diet. If you take vitamin C as a supplement, don't take more than 1,000 mg a day. A dietitian or your healthcare provider can give you information about changes in your diet that will help prevent more kidney stones from forming. Follow-up care Follow up with your healthcare provider, or as advised, if the pain lasts more than 48 hours. Talk with your provider about urine and blood tests to find out the cause of your stone. If you had an X-ray, CT scan, or other diagnostic test, you will be told of any new findings that may affect your care. Call 911 Call 911 if you have any of these: Weakness, dizziness, or fainting When to seek medical advice Call your healthcare provider right away if any of these occur: Pain that is not controlled by the medicine given Repeated vomiting or unable to keep down fluids Fever of 100.4 F (38 C) or higher, or as directed by your healthcare provider Passage of solid red or brown urine (can't see through it) or urine with lots of blood clots Foul-smelling or cloudy urine Unable to pass urine for 8 hours and increasing bladder pressure [id number] [employer]. [address] [place] [address]. All rights reserved. This information is not intended as a substitute for professional medical care. Always follow your healthcare professional's instructions. Additional Information VACCINATE! IT SAVES LIVES! Members of the community who have not yet received the COVID-19 vaccine and would like to receive it can visit one of [facility] vaccine clinics. There are many vaccine clinic locations within the [facility]. For locations and available times, please visit [email or web address] . It is important to note that some COVID mobile vaccine clinics are held outdoors and may be canceled in rainy or stormy conditions. To learn more about pediatric vaccinations (ages 5-11), we invite you to visit the [facility] webpage. [email or web address] To learn more about the COVID-19 vaccine, we invite you to visit the [facility] website for a list of frequently asked questions. [email or web address] [facility] Patient Portal Access Instructions: Stay connected with your healthcare team and access your personal medical information anytime with the [facility] Patient Portal. If you would like a full copy of your medical records please contact the [facility] Medical Records Department Sunday through Sunday between 8a.m. and 4:30p.m. Please follow the directions below to access the portal: 1.Access the email account you provided upon registration to the hospital.2.Look for an invitation email from [facility].3.Open the email and access the invitation link: Accept Invitation to [facility].Fill in the required taveras to create your account. Sign into [email or web address] with your username and password that you created in the above steps to stay up to date. You can then view a summary of results, a summary of your visits, and the ability to download your summaries to your computer or send the information securely to a physician. Remember that your healthcare information is confidential, so carefully consider who you will allow to register on the [facility] Patient Portal for access to your information. You can also access the [facility] Patient Portal on the [employer]. Simply click on Health Records under Health Data and then click on the [employer] logo. HOW TO SAFELY DISPOSE OF PRESCRIPTION MEDICATIONS Please use one of the following methods to safely dispose of your unused medications. 1.Use a drug disposal kit: the drug disposal pouch allows you to safely discard your old and unused drugs. Ask your nurse to give you one when you are discharged.2.Visit a local take-back location: Many local pharmacies and police departments have programs that collect old and unwanted prescription drugs. Call your local pharmacy or go to http://iCAD.Call Britannia/3V9Wb9a to find one close to you.3.Make use of household items: Use cat litter or old coffee grounds to dispose medications if other options are not available. Mix your drugs with these household products, seal them in an airtight container and throw it into the garbage. Call [facility]: [phone] to be sure your drugs can be disposed of in this way. Some medicines may require a different approach.4.Never flush your medications down the toilet. IF YOU HAVE BEEN PRESCRIBED AN OPIOIDS FOR PAIN If you have been prescribed an opioid (such as hydrocodone, oxycodone or morphine), it is critical to understand the possible side effects and risks of opioid pain medications. Even when taken as directed, opioids can have several side effects including: Tolerance, meaning you might need to take more of a medication for the same pain relief. Nausea, vomiting and/or constipation. Sleepiness, dizziness, dry mouth, confusion, depression or itching. Physical dependence, meaning you have withdrawal symptoms when a medication is stopped ? this can develop within a few days. KNOW YOUR RESPONSIBILITIES It is important to know exactly how much and how often to take the opioid pain medications you are prescribed. Never take opioids in higher amounts or more often than prescribed. Do not combine opioids with alcohol or other drugs that cause drowsiness, such as benzodiazepines, also known as benzos, including diazepam and alprazolam, muscle relaxants or sleep aids. Never sell or share prescription opioids. This is illegal. Store opioids in a secure place and out of reach of others (including children, family, friends and visitors). The last page(s) of this document has been signed and retained as a CHART COPY Signatures Patient Education Materials Kidney Stone w/ Colic Medication Leaflets My discharge plan and instructions have been reviewed and explained to me and I,YAMILE BARNETT understand my current condition and have read and understand these discharge instructions. I have received a written copy of the plan/instructions. If I have questions, I am aware that I should contact my doctor. 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 It is now passing down a narrow tube (ureter) on its way to your bladder. Once the stone reaches your bladder, the pain will often stop. But it may come back as the stone continues to pass out of the bladder and through the urethra. The stone may pass in your urine stream in one piece. The size may be 1/16 inch to 1/4 inch (1 mm to 6 mm). Or, the stone may break up into pieter fragments that you may not even notice. Once you have had a kidney stone, you are at risk of getting another one in the future. There are 4 types of kidney stones. Eighty percent are calcium stones mostly calcium oxalate but also some with calcium phosphate. The other 3 types include uric acid stones, struvite stones (from a preceding infection), and rarely, cystine stones. Most stones will pass on their own, but may take from a few hours to a few days. Sometimes the stone is too large to pass by itself. In that case, the healthcare provider will need to use other ways to remove the stone. These techniques include: Lithotripsy. This uses ultrasound waves to break up the stone. Ureteroscopy. This pushes a basket-like instrument through the urethra and bladder and into the ureter to pull out the stone. Various types of direct surgery through the skin Home care The following are general care guidelines: Drink plenty of fluids. This means at least 12, 8-ounce glasses of fluid mostly water a day. Each time you urinate, do so in a jar. Pour the urine from the jar through the strainer and into the toilet. Continue doing this until 24 hours after your pain stops. By then, if there was a kidney stone, it should pass from your bladder. Some stones dissolve into sand-like particles and pass right through the strainer. In that case, you won t ever see a stone. Save any stone that you find in the strainer and bring it to your healthcare provider to look at. It may be possible to stop certain types of stones from forming. For this reason, it is important to know what kind of stone you have. Try to stay as active as possible. This will help the stone pass. Don't stay in bed unless your pain keeps you from getting up. You may notice a red, pink, or brown color to your urine. This is normal while passing a kidney stone. If you develop pain, you may take ibuprofen or naproxen for pain, unless another medicine was prescribed. If you have chronic liver or kidney disease, talk with your healthcare provider before taking these medicines. Also talk with your provider if you've had a stomach ulcer or GI bleeding. Preventing stones Each year for the next 5 to 7 years, you are at risk that a new stone will form. Your risk is a 50% chance over this time period. The risk is higher if you have a family history of kidney stones or have certain chronic illnesses like hypertension, obesity, or diabetes. But you can make changes to your lifestyle and diet that can lower your risk for another stone. Most kidney stones are made of calcium. The following is advice for preventing another calcium stone. If you don t know the type of stone you have, follow this advice until the cause of your stone is found. Things that help: The most important thing you can do is to drink plenty of fluids each day. See home care above. Eat foods that contain phytates. These include wheat, rice, rye, barley, and beans. Phytates are substances that may lower your risk for any type of stone to form. Eat more fruits and vegetables. Choose those that are high in potassium. Eat foods high in natural citrate like fruit and low-sugar fruit juices. Having too little calcium in your diet can put you at risk for calcium kidney stones. Eat a normal amount of calcium in your diet and talk with your healthcare provider if you are taking calcium supplements. Cutting back on your calcium intake may raise your risk. New research shows that eating calcium-rich and oxalate-rich foods together lowers your risk for stones by binding the minerals in the stomach and intestines before they can reach the kidneys. Limit salt intake to 2 grams (1 teaspoon) per day. Use limited amounts when cooking, and don t add salt at the table. Processed and canned foods are usually high in salt. Spinach, rhubarb, peanuts, cashews, almonds, grapefruit, and grapefruit juice are all high oxalate foods. You should limit how much of these you eat. Or eat them with calcium-rich foods. These include dairy products, dark leafy greens, soy products, and calcium-enriched foods. Reducing the amount of animal meat and high protein foods in your diet may lower your risk for uric acid stones. Avoid excess sugar (sucrose) and fructose (sweetener in many soft drinks) in your diet. If you take vitamin C as a supplement, don't take more than 1,000 mg a day. A dietitian or your healthcare provider can give you information about changes in your diet that will help prevent more kidney stones from forming. Follow-up care Follow up with your healthcare provider, or as advised, if the pain lasts more than 48 hours. Talk with your provider about urine and blood tests to find out the cause of your stone. If you had an X-ray, CT scan, or other diagnostic test, you will be told of any new findings that may affect your care. Call 911 Call 911 if you have any of these: Weakness, dizziness, or fainting When to seek medical advice Call your healthcare provider right away if any of these occur: Pain that is not controlled by the medicine given Repeated vomiting or unable to keep down fluids Fever of 100.4 F (38 C) or higher, or as directed by your healthcare provider Passage of solid red or brown urine (can't see through it) or urine with lots of blood clots Foul-smelling or cloudy urine Unable to pass urine for 8 hours and increasing bladder pressure [id number] [employer]. [address] [place] [address], [place] [address]. All rights reserved. This information is not intended as a substitute for professional medical care. Always follow your healthcare professional's instructions. Follow Up Care 06/18/2022 12:19:31 With:FELICIA RODRÍGUEZ MD Address: [address] [place] [address] [address] [place] [address]- When:2-4 days With:ARNALDO PHILLIPS DO Address: [address] [facility] [place] [phone] When:2-4 days [facility] 06-18-2022 Note ORIGINAL EXAMINATION: CT OF THE ABDOMEN AND PELVIS WITH CONTRAST 06/18/2022 2:17 pm TECHNIQUE: CT of the abdomen and pelvis was performed with the administration of intravenous contrast. Multiplanar reformatted images are provided for review. Automated exposure control, iterative reconstruction, and/or weight based adjustment of the mA/kV was utilized to reduce the radiation dose to as low as reasonably achievable. COMPARISON: None. HISTORY: ORDERING SYSTEM PROVIDED HISTORY: Reason for Exam: pain Cholecystectomy, hysterectomy FINDINGS: Multilevel degenerative changes throughout the spine, most pronounced at L5-S1. Included lung bases are clear. Normal heart size. No pleural or pericardial effusion. Focal fatty infiltration along the falciform ligament. Otherwise the liver is unremarkable. Gallbladder surgically absent. The spleen pancreas and bilateral adrenal glands are unremarkable. The common duct is mildly dilated measuring up to 9 mm post cholecystectomy. Mild left perinephric stranding and moderate hydroureteronephrosis secondary to an obstructive proximal left ureteral calculus which measures about 5 mm and is seen at about the level of L3. No additional left ureteral calculi. No right renal calculi. Bilateral unilocular hypodense, thin walled renal lesions which measure up to 2.2 cm at the left mid kidney are compatible with simple cysts. The subcentimeter lesions cannot be definitively characterize however the statistically represent cysts. No focal bladder wall thickening. The uterus is surgically absent. No adnexal mass. Small hiatal hernia. Small bowel is normal caliber without evidence of inflammatory change. The large bowel is overall not well distended which limits evaluation for wall thickening. The appendix is not definitively identified however there is no pericecal inflammation. Ovoid partially calcified lesion adjacent to the right common iliac vein on axial image 86 of series 2 could reflect a partially calcified lymph node versus fat necrosis. No free air free fluid. The aorta is moderately atherosclerotic and normal caliber. No lymphadenopathy. IMPRESSION: 5 mm obstructive left proximal ureteral calculus results in moderate left hydroureteronephrosis and perinephric stranding. This stone is seen at about the level of L3. Other chronic and incidental findings as described above. I have personally reviewed the images of this examination and agree with the resident's findings and interpretation. Interpreted by: iRchie Muller Preliminary Report By: Mer[facility] Electronically signed By Richie Muller Dictated Date: 06/18/2022 2:25:35 PM Prelim Date: 06/18/2022 2:34:03 PM Sign Date: 06/18/2022 2:48:02 PM Ordering Provider: DANILO STEVENS [facility] 06-18-2022 Note Discharge Instructions Thank you for allowing [facility] to assist you with your healthcare needs. The following is important discharge information regarding your hospital visit. Diagnosis from Today's Visit Flank pain Ureteral stone What to Do Next Instructions from Your Care Team No qualifying data available. Post Acute Orders No qualifying data available. You Need to Schedule the Following Appointments Follow Up with FELICIA RODRÍGUEZ MD When Within 2-4 days Where: [address] [place] [id number]- Follow Up with ARNALDO PHILLIPS DO When Within 2-4 days Where: [address] [facility] [place], [place] [phone]- [phone] Allergies simvastatin (Myalgia) Medications Please ask your primary doctor or pharmacist before taking any other medication not listed, including over the counter drugs, herbal medications, vitamins and or supplements as they may interact with your home medications. What How Much When Why Instructions Last Dose New acetaminophen-hydrocodone ([place] 325- 5 mg oral tablet) 1 tab(s) by mouth Every 6 hours as needed for as needed for pain Ureteral stone Duration: 5 Days Printed Prescription New ondansetron (ondansetron 4 mg oral tablet, disintegrating) 1 tab(s) by mouth Every 8 hours as needed for as needed for nausea/vomiting Duration: 3 Days Printed Prescription Unchanged atenolol (atenolol 50 mg oral tablet) 1 tab(s) by mouth Once a day HTN (hypertension) Increased dose Unchanged citalopram (citalopram 40 mg oral tablet) 1 tab(s) by mouth Once a day Depression Anxiety Unchanged cyclobenzaprine (cyclobenzaprine 5 mg oral tablet) 1 tab(s) by mouth Three (3) times a day Night muscle spasms Duration: 30 Days Unchanged hydrOXYzine (hydrOXYzine hydrochloride 50 mg oral tablet) 1 tab(s) by mouth Three (3) times a day Anxiety Duration: 30 Days Unchanged pravastatin (pravastatin 40 mg oral tablet) 1 tab(s) by mouth Once a day Hyperlipidemia Increased dose Please take this list to your next doctor s visit. Bring all medications you take, including over the counter medications, herbals and other supplements with you to your doctor s visit. Patients and families are reminded to discard old lists and to update any records with all medication providers or retail pharmacies. Education Materials Kidney Stone with Pain The sharp cramping pain on either side of your lower back and nausea/vomiting that you have are because of a small stone that has formed in the kidney. It is now passing down a narrow tube (ureter) on its way to your bladder. Once the stone reaches your bladder, the pain will often stop. But it may come back as the stone continues to pass out of the bladder and through the urethra. The stone may pass in your urine stream in one piece. The size may be 1/16 inch to 1/4 inch (1 mm to 6 mm). Or, the stone may break up into pieter fragments that you may not even notice. Once you have had a kidney stone, you are at risk of getting another one in the future. There are 4 types of kidney stones. Eighty percent are calcium stones mostly calcium oxalate but also some with calcium phosphate. The other 3 types include uric acid stones, struvite stones (from a preceding infection), and rarely, cystine stones. Most stones will pass on their own, but may take from a few hours to a few days. Sometimes the stone is too large to pass by itself. In that case, the healthcare provider will need to use other ways to remove the stone. These techniques include: Lithotripsy. This uses ultrasound waves to break up the stone. Ureteroscopy. This pushes a basket-like instrument through the urethra and bladder and into the ureter to pull out the stone. Various types of direct surgery through the skin Home care The following are general care guidelines: Drink plenty of fluids. This means at least 12, 8-ounce glasses of fluid mostly water a day. Each time you urinate, do so in a jar. Pour the urine from the jar through the strainer and into the toilet. Continue doing this until 24 hours after your pain stops. By then, if there was a kidney stone, it should pass from your bladder. Some stones dissolve into sand-like particles and pass right through the strainer. In that case, you won t ever see a stone. Save any stone that you find in the strainer and bring it to your healthcare provider to look at. It may be possible to stop certain types of stones from forming. For this reason, it is important to know what kind of stone you have. Try to stay as active as possible. This will help the stone pass. Don't stay in bed unless your pain keeps you from getting up. You may notice a red, pink, or brown color to your urine. This is normal while passing a kidney stone. If you develop pain, you may take ibuprofen or naproxen for pain, unless another medicine was prescribed. If you have chronic liver or kidney disease, talk with your healthcare provider before taking these medicines. Also talk with your provider if you've had a stomach ulcer or GI bleeding. Preventing stones Each year for the next 5 to 7 years, you are at risk that a new stone will form. Your risk is a 50% chance over this time period. The risk is higher if you have a family history of kidney stones or have certain chronic illnesses like hypertension, obesity, or diabetes. But you can make changes to your lifestyle and diet that can lower your risk for another stone. Most kidney stones are made of calcium. The following is advice for preventing another calcium stone. If you don t know the type of stone you have, follow this advice until the cause of your stone is found. Things that help: The most important thing you can do is to drink plenty of fluids each day. See home care above. Eat foods that contain phytates. These include wheat, rice, rye, barley, and beans. Phytates are substances that may lower your risk for any type of stone to form. Eat more fruits and vegetables. Choose those that are high in potassium. Eat foods high in natural citrate like fruit and low-sugar fruit juices. Having too little calcium in your diet can put you at risk for calcium kidney stones. Eat a normal amount of calcium in your diet and talk with your healthcare provider if you are taking calcium supplements. Cutting back on your calcium intake may raise your risk. New research shows that eating calcium-rich and oxalate-rich foods together lowers your risk for stones by binding the minerals in the stomach and intestines before they can reach the kidneys. Limit salt intake to 2 grams (1 teaspoon) per day. Use limited amounts when cooking, and don t add salt at the table. Processed and canned foods are usually high in salt. Spinach, rhubarb, peanuts, cashews, almonds, grapefruit, and grapefruit juice are all high oxalate foods. You should limit how much of these you eat. Or eat them with calcium-rich foods. These include dairy products, dark leafy greens, soy products, and calcium-enriched foods. Reducing the amount of animal meat and high protein foods in your diet may lower your risk for uric acid stones. Avoid excess sugar (sucrose) and fructose (sweetener in many soft drinks) in your diet. If you take vitamin C as a supplement, don't take more than 1,000 mg a day. A dietitian or your healthcare provider can give you information about changes in your diet that will help prevent more kidney stones from forming. Follow-up care Follow up with your healthcare provider, or as advised, if the pain lasts more than 48 hours. Talk with your provider about urine and blood tests to find out the cause of your stone. If you had an X-ray, CT scan, or other diagnostic test, you will be told of any new findings that may affect your care. Call 911 Call 911 if you have any of these: Weakness, dizziness, or fainting When to seek medical advice Call your healthcare provider right away if any of these occur: Pain that is not controlled by the medicine given Repeated vomiting or unable to keep down fluids Fever of 100.4 F (38 C) or higher, or as directed by your healthcare provider Passage of solid red or brown urine (can't see through it) or urine with lots of blood clots Foul-smelling or cloudy urine Unable to pass urine for 8 hours and increasing bladder pressure [id number] [employer]. [address] [place] [address]. All rights reserved. This information is not intended as a substitute for professional medical care. Always follow your healthcare professional's instructions. Additional Information VACCINATE! IT SAVES LIVES! Members of the community who have not yet received the COVID-19 vaccine and would like to receive it can visit one of [facility] vaccine clinics. There are many vaccine clinic locations within the [facility]. For locations and available times, please visit [email or web address] . It is important to note that some COVID mobile vaccine clinics are held outdoors and may be canceled in rainy or stormy conditions. To learn more about pediatric vaccinations (ages 5-11), we invite you to visit the [facility] webpage. [email or web address] To learn more about the COVID-19 vaccine, we invite you to visit the [place] website for a list of frequently asked questions. [email or web address] [facility] [employer] Patient Portal Access Instructions: Stay connected with your healthcare team and access your personal medical information anytime with the [facility] Patient Portal. If you would like a full copy of your medical records please contact the [facility] Medical Records Department Sunday through Sunday between 8a.m. and 4:30p.m. Please follow the directions below to access the portal: 1.Access the email account you provided upon registration to the hospital.2.Look for an invitation email from [facility].3.Open the email and access the invitation link: Accept Invitation to [facility].Fill in the required taveras to create your account. Sign into [email or web address] with your username and password that you created in the above steps to stay up to date. You can then view a summary of results, a summary of your visits, and the ability to download your summaries to your computer or send the information securely to a physician. Remember that your healthcare information is confidential, so carefully consider who you will allow to register on the [facility] Patient Portal for access to your information. You can also access the [facility] Patient Portal on the [employer] vincent. Simply click on Health Records under Health Data and then click on the [employer] logo. HOW TO SAFELY DISPOSE OF PRESCRIPTION MEDICATIONS Please use one of the following methods to safely dispose of your unused medications. 1.Use a drug disposal kit: the drug disposal pouch allows you to safely discard your old and unused drugs. Ask your nurse to give you one when you are discharged.2.Visit a local take-back location: Many local pharmacies and police departments have programs that collect old and unwanted prescription drugs. Call your local pharmacy or go to http://iCAD.Call [email or web address]/5O4Ym9d to find one close to you.3.Make use of household items: Use cat litter or old coffee grounds to dispose medications if other options are not available. Mix your drugs with these household products, seal them in an airtight container and throw it into the garbage. Call [facility]: [phone] to be sure your drugs can be disposed of in this way. Some medicines may require a different approach.4.Never flush your medications down the toilet. IF YOU HAVE BEEN PRESCRIBED AN OPIOIDS FOR PAIN If you have been prescribed an opioid (such as hydrocodone, oxycodone or morphine), it is critical to understand the possible side effects and risks of opioid pain medications. Even when taken as directed, opioids can have several side effects including: Tolerance, meaning you might need to take more of a medication for the same pain relief. Nausea, vomiting and/or constipation. Sleepiness, dizziness, dry mouth, confusion, depression or itching. Physical dependence, meaning you have withdrawal symptoms when a medication is stopped ? this can develop within a few days. KNOW YOUR RESPONSIBILITIES It is important to know exactly how much and how often to take the opioid pain medications you are prescribed. Never take opioids in higher amounts or more often than prescribed. Do not combine opioids with alcohol or other drugs that cause drowsiness, such as benzodiazepines, also known as benzos, including diazepam and alprazolam, muscle relaxants or sleep aids. Never sell or share prescription opioids. This is illegal. Store opioids in a secure place and out of reach of others (including children, family, friends and visitors). The last page(s) of this document has been signed and retained as a CHART COPY Signatures Patient Education Materials Kidney Stone w/ Colic Medication Leaflets My discharge plan and instructions have been reviewed and explained to me and I,ERICKA YAMILE Ron understand my current condition and have read and understand these discharge instructions. I have received a written copy of the plan/instructions. If I have questions, I am aware that I should contact my doctor. 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 Multiplanar reformatted images are provided for review. Automated exposure control, iterative reconstruction, and/or weight based adjustment of the mA/kV was utilized to reduce the radiation dose to as low as reasonably achievable. COMPARISON: None. HISTORY: ORDERING SYSTEM PROVIDED HISTORY: Reason for Exam: pain Cholecystectomy, hysterectomy FINDINGS: Multilevel degenerative changes throughout the spine, most pronounced at L5-S1. Included lung bases are clear. Normal heart size. No pleural or pericardial effusion. Focal fatty infiltration along the falciform ligament. Otherwise the liver is unremarkable. Gallbladder surgically absent. The spleen pancreas and bilateral adrenal glands are unremarkable. The common duct is mildly dilated measuring up to 9 mm post cholecystectomy. Mild left perinephric stranding and moderate hydroureteronephrosis secondary to an obstructive proximal left ureteral calculus which measures about 5 mm and is seen at about the level of L3. No additional left ureteral calculi. No right renal calculi. Bilateral unilocular hypodense, thin walled renal lesions which measure up to 2.2 cm at the left mid kidney are compatible with simple cysts. The subcentimeter lesions cannot be definitively characterize however the statistically represent cysts. No focal bladder wall thickening. The uterus is surgically absent. No adnexal mass. Small hiatal hernia. Small bowel is normal caliber without evidence of inflammatory change. The large bowel is overall not well distended which limits evaluation for wall thickening. The appendix is not definitively identified however there is no pericecal inflammation. Ovoid partially calcified lesion adjacent to the right common iliac vein on axial image 86 of series 2 could reflect a partially calcified lymph node versus fat necrosis. No free air free fluid. The aorta is moderately atherosclerotic and normal caliber. No lymphadenopathy. IMPRESSION: 5 mm obstructive left proximal ureteral calculus results in moderate left hydroureteronephrosis and perinephric stranding. This stone is seen at about the level of L3. Other chronic and incidental findings as described above. I have personally reviewed the images of this examination and agree with the resident's findings and interpretation. Interpreted by: Richie Muller Preliminary Report By: Mercy Elmore Electronically signed By Richie Muller Dictated Date: 06/18/2022 2:25:35 PM Prelim Date: 06/18/2022 2:34:03 PM Sign Date: 06/18/2022 2:48:02 PM Ordering Provider: [facility] ([facility]3] 11-01-2021 Note HNO ID: [id number] Author: Lucrecia Faustin RDMS Service: ? Author Type: Surgical Appliance Fitter Type: Progress Notes Filed: 11/01/2021 1:28 PM Note Text: Radiology Service Progress Note PATIENT NAME: Yamile Barnett DATE OF SERVICE: November 01, 2021 TIME: 1:28 PM PATIENT IDENTITY VERIFICATION COMPLETED USING TWO (2) IDENTIFIERS: Name and Date of confirmed by patient verbally. FALL SCREENING: Has the patient had 2 falls in the last year or 1 fall with injury or currently using an Ambulatory Assistive Device (Walker, Cane, Wheelchair, Crutches, etc.)? No PATIENT GENDER DATA: Female. status: : No status: N/A PATIENT RELEVANT IMPLANT DATA REVIEWED: Not Applicable RADIOLOGY DEPARTMENT: Ultrasound PERIPHERAL IV DATA: Not applicable SIGNED BY: Lucrecia Faustin RDMS RVT November 01, 2021 1:28 PM [facility] 11-01-2021 Note HNO ID: [id number] Author: RT Makenzie(R) Service: ? Author Type: Technologist Type: Progress Notes Filed: 11/01/2021 8:58 AM Note Text: Radiology Service Progress Note PATIENT NAME: Yamile Barnett DATE OF SERVICE: November 01, 2021 TIME: 8:35 AM PATIENT IDENTITY VERIFICATION COMPLETED USING TWO (2) IDENTIFIERS: Name and Date of confirmed by patient verbally. FALL SCREENING: Has the patient had 2 falls in the last year or 1 fall with injury or currently using an Ambulatory Assistive Device (Walker, Cane, Wheelchair, Crutches, etc.)? No PATIENT GENDER DATA: Female. status: : No status: NO. PATIENT RELEVANT IMPLANT DATA REVIEWED: Not Applicable RADIOLOGY DEPARTMENT: Mammography PERIPHERAL IV DATA: Not applicable SIGNED BY: RT Makenzie(R) November 01, 2021 8:35 AM [facility] 10-31-2021 Note HNO ID: [id number] Author: Hellen Barahona APRN.[facility] Service: ? Author Type: Nurse Practitioner Type: Progress Notes Filed: 10/31/2021 9:22 AM Note Text: Subjective Patient came in with complaints of left lower abdominal pain and a protrusion. patient said she has had the protrusion for over a month. But recently becasme painful Review of Systems Constitutional: Negative. Objective Physical Exam Constitutional: Appearance: Normal appearance. Abdominal: Comments: protrusion in this area. Neurological: Mental Status: She is alert. PAST MEDICAL HISTORY Diagnosis Date - Endometriosis PAST SURGICAL HISTORY Procedure Laterality Date - APPENDECTOMY 1989 - DELIVERY ONLY 1990,2000,2001 , low transverse - HYSTERECTOMY HX 10/07/2015 ovaries remained. - LAPAROSCOPIC CHOLEYCYSTECTOMY 2003 Cholecystectomy, lap - PAST SURGICAL HISTORY OF 1998,1999 for endometriosis ALLERGIES Patient has no known allergies. MEDICATIONS cyclobenzaprine (FLEXERIL) 5 mg tablet See Instructions, TAKE 1 TABLET BY MOUTH 3 TIMES A DAY, # 90 tab(s), 2 Refill(s), Pharmacy: [facility]/pharmacy #[id number], 160, cm, 11/30/20 9:26:00 EST, Height, kg, 11/30/20 9:26:00 EST, Dosing Weight metoprolol succinate ER (TOPROL XL) 25 mg 24 hr tablet pravastatin (PRAVACHOL) 20 mg tablet escitalopram oxalate (LEXAPRO) 10 mg tablet hydrOXYzine pamoate (VISTARIL) 50 mg capsule Take 50 mg by mouth three times daily as needed. ibuprofen (MOTRIN) 800 mg tablet Take 1 tablet by mouth every 8 hours as needed for Pain. FOR PAIN. FAMILY HISTORY Problem Relation Age of Onset - other (Cancer, uterine or cervical) Mother cervical/ uterine - Diabetes Maternal Grandmother Social History Tobacco Use - Smoking status: Former Smoker Packs/day: 0.50 Years: 20.00 Pack years: 10.00 Types: Cigarettes - Smokeless tobacco: Never Used Vaping Use - Vaping Use: current everyday user - Substances: Nicotine, Flavoring Substance Use Topics - Alcohol use: No - Drug use: No ASSESSMENT/PLAN: 1. Left lower quadrant abdominal pain - ICD9: 789.04, ICD10: R10.32 At this time patient is being sent to the ED for further testing due to new onset of pain. Patient was okay with this care plan. Hellne Barahona APRN.[facility] 10-17-2021 Note HNO ID: [id number] Author: RT Dodie(R) Service: Nuclear Medicine Author Type: Technologist Type: Progress Notes Filed: 10/17/2021 10:11 AM Note Text: Radiology Service Progress Note PATIENT NAME: Yamile Barnett DATE OF SERVICE: October 17, 2021 TIME: 10:00 AM PATIENT IDENTITY VERIFICATION COMPLETED USING TWO (2) IDENTIFIERS: Name and Date of confirmed by patient verbally. FALL SCREENING: Has the patient had 2 falls in the last year or 1 fall with injury or currently using an Ambulatory Assistive Device (Walker, Cane, Wheelchair, Crutches, etc.)? No PATIENT GENDER DATA: Female. status: : No status: NO. PATIENT RELEVANT IMPLANT DATA REVIEWED: Not Applicable RADIOLOGY DEPARTMENT: General X-ray: Exam(s) Completed: Lower Extremity X-Ray(s): Ankle, Left and Wt. Bearing and Foot, Left and Wt. Bearing PERIPHERAL IV DATA: Not applicable SIGNED BY: RT Dodie(R) October 17, 2021 10:00 AM [facility] 10-17-2021 Note HNO ID: [id number] Author: Lucrecia Pham APRN.[facility] Service: ? Author Type: Nurse Practitioner Type: Progress Notes Filed: 10/17/2021 10:41 AM Note Text: This note was created using Yubriter. Subjective Yamile Barnett is a 46 year old female. 46 year old female with PMH HTN presents for complaints of left foot and left ankle pain. Acute onset Sunday night. States she was sitting with her left leg under her and when she went to stand twisted it a few times Citing that her foot was numb and as she was stepping down twisted my foot and ankle 3 times Locates pain in lateral aspect of left foot and left ankle. +swelling Denies ecchymosis. Denies numbness or tingling Denies additional injuries. Denies neck pain. Denies back pain. Denies prior history of fractures. The history is provided by the patient. No chief estimator was used. Pain (foot) Pain location: left foot and left ankle. This is a new problem. The current episode started in the past 7 days. There has been a history of trauma. The problem occurs constantly. The problem has been unchanged. The quality of the pain is described as aching. The pain is at a severity of 7/10. The pain is moderate. Associated symptoms include joint swelling. Pertinent negatives include no fever, inability to bear weight, itching, joint locking, limited range of motion, numbness, stiffness or tingling. The symptoms are aggravated by activity (standing). She has tried nothing for the symptoms. The treatment provided no relief. Family history does not include gout or rheumatoid arthritis. There is no history of diabetes, gout, osteoarthritis or rheumatoid arthritis. PAST MEDICAL HISTORY Diagnosis Date - Endometriosis PAST SURGICAL HISTORY Procedure Laterality Date - APPENDECTOMY 1989 - DELIVERY ONLY 1990,2000,2001 , low transverse - HYSTERECTOMY HX 10/07/2015 ovaries remained. - LAPAROSCOPIC CHOLEYCYSTECTOMY 2003 Cholecystectomy, lap - PAST SURGICAL HISTORY OF 1998,1999 for endometriosis ALLERGIES Patient has no known allergies. MEDICATIONS cyclobenzaprine (FLEXERIL) 5 mg tablet See Instructions, TAKE 1 TABLET BY MOUTH 3 TIMES A DAY, # 90 tab(s), 2 Refill(s), Pharmacy: [facility]/pharmacy #[id number], 160, cm, 11/30/20 9:26:00 EST, Height, kg, 11/30/20 9:26:00 EST, Dosing Weight metoprolol succinate ER (TOPROL XL) 25 mg 24 hr tablet pravastatin (PRAVACHOL) 20 mg tablet escitalopram oxalate (LEXAPRO) 10 mg tablet hydrOXYzine pamoate (VISTARIL) 50 mg capsule Take 50 mg by mouth three times daily as needed. ibuprofen (MOTRIN) 800 mg tablet Take 1 tablet by mouth every 8 hours as needed for Pain. FOR PAIN. FAMILY HISTORY Problem Relation Age of Onset - other (Cancer, uterine or cervical) Mother cervical/ uterine - Diabetes Maternal Grandmother Social History Tobacco Use - Smoking status: Former Smoker Packs/day: 0.50 Years: 20.00 Pack years: 10.00 Types: Cigarettes - Smokeless tobacco: Never Used Vaping Use - Vaping Use: current everyday user - Substances: Nicotine, Flavoring Substance Use Topics - Alcohol use: No - Drug use: No Review of Systems Constitutional: Negative for appetite change, chills, diaphoresis, fatigue and fever. HENT: Negative for congestion, dental problem, drooling, ear discharge, ear pain, facial swelling, hearing loss, mouth sores, nosebleeds, postnasal drip, rhinorrhea, sinus pressure, sinus pain and sneezing. Respiratory: Negative for apnea, cough, choking, chest tightness, shortness of breath, wheezing and stridor. Cardiovascular: Negative for chest pain, palpitations and leg swelling. Gastrointestinal: Negative for abdominal pain, diarrhea, nausea and vomiting. Musculoskeletal: Negative for arthralgias, back pain, gout and stiffness. Left foot and left ankle Skin: Negative for color change, itching, pallor, rash and wound. Allergic/Immunologic: Negative for environmental allergies, food allergies and immunocompromised state. Neurological: Negative for dizziness, tingling, facial asymmetry, light-headedness, numbness and headaches. Hematological: Negative for adenopathy. Does not bruise/bleed easily. Psychiatric/Behavioral: Negative for agitation and behavioral problems. Objective BP 122/74 Pulse 98 Temp 37.6 ?C (99.6 ?F) Resp 18 Wt 83.5 kg (184 lb) LMP 10/05/2015 SpO2 97% BMI 34.20 kg/m? Physical Exam Vitals and nursing note reviewed. Constitutional: General: She is not in acute distress. Appearance: Normal appearance. She is normal weight. She is not ill-appearing, toxic-appearing or diaphoretic. HENT: Head: Normocephalic and atraumatic. Right Ear: Ear canal and external ear normal. Left Ear: Ear canal and external ear normal. Nose: Nose normal. No congestion or rhinorrhea. Mouth/Throat: Mouth: Mucous membranes are moist. Pharynx: No oropharyngeal exudate or posterior oropharyngeal erythema (more content not included)... [facility] 09-16-2021 Note HNO ID: [id number] Author: Bhumi Crocker APRN.CNM Service: ? Author Type: Coagulator Type: Progress Notes Filed: 09/16/2021 1:07 PM Note Text: Yamile Barnett is a 45 year old who presents with asymmetry, tenderness and heaviness in the right breast region. She denies any lumps or nodules. She feels pain and pulling around pectoral region. Had bilateral diagnostic mammogram and right breast ultrasound on 04/29/20 ([facility]) that reported a benign appearing 1.3 cm cyst in the right breast central to the nipple middle depth and correlates as an incidental finding. A follow up diagnostic mammogram was completed on 12/03/20 and reported There is a 2.5 cm focal asymmetry in the right breast at 1 o'clock posterior depth and resembles fibroglandular tissues and appears benign . A follow up diagnostic bilateral mammogram completed on 05/10/21 with normal results.She is here today for a second opinion and continued tenderness to right breast. OBJECTIVE: NECK: normal thyroid LUNGS: negative findings: chest symmetric with normal A/P diameter and no chest deformities noted HEART: Regular rate and rhythm BREASTS: Symmetrical to inspection., No dimpling or skin changes., Normal consistency, no palpable masses., Normal nipples without discharge., No axillary lymphadenopathy. ASSESSMENT/PLAN: 1. Breast tenderness in female - ICD9: 611.71, ICD10: N64.4 (primary diagnosis) - Possible pectoral strain? - [facility] DIAGNOSTIC BILAT - US BREAST LTD RT 2. Sensation of heaviness - ICD9: 780.99, ICD10: R68.89 RTO- as needed Will follow up with patient after breast imaging Bhumi Crocker APRN.CNM I spent a total of 30 minutes on the date of the service which included preparing to see the patient, [id number] patient care, completing clinical documentation, obtaining and/or reviewing separately obtained history, performing a medically appropriate examination, counseling and educating the patient/family/caregiver and ordering medications, tests, or procedures. [facility] 03-04-2021 Note HNO ID: [id number] Author: Roselia Joiner MD Service: ? Author Type: ? Type: Progress Notes Filed: 03/04/2021 11:37 AM Note Text: Yamile Barnett is a 45 year old female who presents for problem visit for f/u pelvic pain. Reports she has had a little improvement in pain. Her side isn't hurting as much. Taking aygestin and no side effects. Notes 2 weeks ago for first time since hysterectomy had bleeding after intercourse, bright red. A little crampier after that. no bleeding since then and has had intercourse since then. Not as constipated but still has some. Feels difficult to expel bowel movements. No changes in urination, no concerns with this. PAST MEDICAL HISTORY Diagnosis Date - Endometriosis PAST SURGICAL HISTORY Procedure Laterality Date - APPENDECTOMY 1989 - DELIVERY ONLY 1990,2000,2001 , low transverse - HYSTERECTOMY HX 10/07/2015 ovaries remained. - LAPAROSCOPIC CHOLEYCYSTECTOMY 2002 Cholecystectomy, lap - PAST SURGICAL HISTORY OF 1998,1999 for endometriosis FAMILY HISTORY Problem Relation Age of Onset - other (Cancer, uterine or cervical) Mother cervical/ uterine - Diabetes Maternal Grandmother Social History Tobacco Use - Smoking status: Current Every Day Smoker Packs/day: 0.50 Years: 20.00 Pack years: 10.00 Types: Cigarettes - Smokeless tobacco: Never Used Substance Use Topics - Alcohol use: No - Drug use: No Current Outpatient Medications Medication Sig - pravastatin (PRAVACHOL) 20 mg tablet - escitalopram oxalate (LEXAPRO) 10 mg tablet - norethindrone (AYGESTIN) 5 mg tablet Take 0.5 tablets by mouth once daily. - hydrOXYzine pamoate (VISTARIL) 50 mg capsule Take 50 mg by mouth three times daily as needed. - ibuprofen (MOTRIN) 800 mg tablet Take 1 tablet by mouth every 8 hours as needed for Pain. FOR PAIN. - sertraline (ZOLOFT) 100 mg tablet Take 100 mg by mouth twice daily. (Patient not taking: Reported on 03/04/2021 ) No current facility-administered medications for this visit. Allergies As of Date: 03/04/2021 (No Known Allergies) Fully Assessed 03/04/2021 Allergies and current medication updated:Yes EXAM: LMP 10/05/2015 GENERAL: pleasant, female in no apparent distress HEENT: Normocephalic, atraumatic, mucus membranes moist and no lesions PELVIC: external genitalia normal, normal Bartholin's glands, urethra, Calypso's glands, no vulvar lesions, good vaginal support, physiologic discharge present, normal appearing perineal body and perianal region, cervix surgically absent. Cuff intact, well supported, no abnormalities visualized or palpable. Still w/ moderate tenderness left adenexal area, no rebound or guarding. Uterus surgically absent ASSESSMENT AND PLAN: endometriosis, chronic pelvic pain, pain w/ defication. I discussed with the patient I felt the most reasonable next course of action would be pelvic floor physical therapy. An order was placed for this. Continue Aygestin for now as she is tolerating it well and does seem to have helped somewhat. Patient is comfortable with this plan. If she does not have satisfactory improvement in her symptoms in the next 3 to 4 months, would consider pelvic pain clinic referral. Patient is comfortable with this plan. Medical Decision Making Roselia Joiner MD [facility] 12-30-2020 Note HNO ID: [id number] Author: Lucrecia Faustin Service: ? Author Type: Surgical Appliance Fitter Type: Progress Notes Filed: 12/30/2020 12:01 PM Note Text: Radiology Service Progress Note PATIENT NAME: Yamile Barnett DATE OF SERVICE: December 30, 2020 TIME: 12:00 PM PATIENT IDENTITY VERIFICATION COMPLETED USING TWO (2) IDENTIFIERS: Name and Date of confirmed by patient verbally. FALL SCREENING: Has the patient had 2 falls in the last year or 1 fall with injury or currently using an Ambulatory Assistive Device (Walker, Cane, Wheelchair, Crutches, etc.)? No PATIENT GENDER DATA: Female. status: : No status: N/A PATIENT RELEVANT IMPLANT DATA REVIEWED: Not Applicable RADIOLOGY DEPARTMENT: Ultrasound PERIPHERAL IV DATA: Not applicable SIGNED BY: LUCRECIA FAUSTIN RDMS RVT December 30, 2020 12:00 PM [facility] 12-29-2020 Note HNO ID: [id number] Author: Roselia Joiner Service: ? Author Type: ? Type: Progress Notes Filed: 12/29/2020 4:11 PM Note Text: Yamile Barnett is a 45 year old female who presents for problem visit for pelvic pain 6 month(s). HPI: This is a 45 year old female with h/o endometriosis who presents for evaluation of pelvic pain that began 6 months ago. Relevant past history is significant for hysterectomy in 2014. It was robotic and performed locally with bilateral salpingectomy. She had this for heavy bleeding and pelvic pain. She had significant improvement in resolution of her symptoms up until about 6 months ago. She had thatshe pain is sharp and located bilaterally in her lower abdomen. It occasionally keeps her up at night, worsens with movement and activity, and is most pronounced at the end of the day, as well as coincides with ovulation. She has used tylenol, ibuprofen, and heating pads to treat her pain with some relief. She reports associated back pain, dysparuina, constipation, and diarrhea. She denies vaginal bleeding, vaginal discharge, itching, dysuria, hematuria. Patient notes she has some deep bump or dyspareunia, not every time with intercourse but this again has become more frequent over the past 6 months. Not a lot of pain during intercourse and no pain at the vaginal introitus but will have some bilateral achiness after intercourse. She was taking ibuprofen and Tylenol 1 day a week for the pain when it first started and now she is needing to take it 3 to 4 days a week in order to be able to rest at night.7 PAST MEDICAL HISTORY Diagnosis Date - Endometriosis PAST SURGICAL HISTORY Procedure Laterality Date - APPENDECTOMY 1989 - DELIVERY ONLY 1990,2000,2001 , low transverse - HYSTERECTOMY HX 10/07/2015 ovaries remained. - LAPAROSCOPIC CHOLEYCYSTECTOMY 2002 Cholecystectomy, lap - PAST SURGICAL HISTORY OF 1998,1999 for endometriosis FAMILY HISTORY Problem Relation Age of Onset - other (Cancer, uterine or cervical) Mother cervical/ uterine - Diabetes Maternal Grandmother Social History Tobacco Use - Smoking status: Current Every Day Smoker Packs/day: 0.50 Years: 20.00 Pack years: 10.00 Types: Cigarettes - Smokeless tobacco: Never Used Substance Use Topics - Alcohol use: No - Drug use: No Current Outpatient Medications Medication Sig - hydrOXYzine pamoate (VISTARIL) 50 mg capsule Take 50 mg by mouth three times daily as needed. - ibuprofen (MOTRIN) 800 mg tablet Take 1 tablet by mouth every 8 hours as needed for Pain. FOR PAIN. - sertraline (ZOLOFT) 100 mg tablet Take 100 mg by mouth twice daily. No current facility-administered medications for this visit. Allergies As of Date: 12/29/2020 (No Known Allergies) Fully Assessed 09/25/2017 REVIEW OF SYSTEMS Abdomen: Patient reports intermittent diarrhea and constipation for 1 month. No abdominal pain, nausea, vomiting. No bloating, early satiety, indigestion, or increased flatulence. Bladder: Chronic urinary urgency following hysterectomy. No dysuria, gross hematuria, urinary frequency, or incontinence. Breast: No breast lumps, nipple d/c, overlying skin changes, redness or skin retraction. Allergies and current medication updated: yes EXAM: LMP 10/05/2015 GENERAL: pleasant, female in no apparent distress ABDOMEN: soft, no hernia, no masses, Mild tenderness in RLQ, LLQ, rebound Absent and guarding Absent PELVIC: external genitalia normal, normal Bartholin's glands, urethra, Calypso's glands, no vulvar lesions, good vaginal support, physiologic discharge present, normal appearing perineal body and perianal region, cervix surgically absent, no tenderness or spasm of levators, Good support of cuff, cuff intact. BIMANUAL: no adnexal masses, uterus surgically absent and Mild tenderness ASSESSMENT AND PLAN: 1. Endometriosis: Patient's pain is somewhat limited to the adnexal area today. No evidence of levator spasm on exam. Recommend progesterone therapy at this point. Also check pelvic ultrasound. If suspicious lesions would consider an MRI and consult with minimally invasive gynecology. Patient understands and agrees with this plan. If no significant improvement or worsening of symptoms, would still consider MRI after next follow-up visit. 5. Return in 2-3 months for follow up Roselia Joiner MD [facility] Evaluation + Plan note Future Appointments Appointment Date:01/13/2022 08:30:00 AM Scheduled Provider:ARNALDO PHILLIPS DO Location:[facility] Appointment Type:PC OV Future Scheduled TestsThyroid Stimulating Hormone 08/30/21Lipid Profile 08/30/21Complete Metabolic Panel 08/30/21 [facility] Evaluation + Plan note Future Appointments Appointment Date:08/11/2022 08:30:00 AM Scheduled Provider:ARNALDO PHILLIPS DO Location:[facility] Appointment Type:PC OV Future Scheduled TestsThyroid Stimulating Hormone 05/05/22Thyroid Stimulating Hormone 08/30/21Lipid Profile 05/05/22Lipid Profile 08/30/21Hepatitis C Antibody IgG 05/05/22Complete Metabolic Panel 05/05/22Complete Metabolic Panel 08/30/21 [facility] Evaluation + Plan note Future Appointments Appointment Date:11/27/2023 08:00:00 AM Scheduled Provider:ARNALDO PHILLIPS DO Location:[facility] Appointment Type:PC OV Future Scheduled TestsThyroid Stimulating Hormone 06/06/23Lipid Profile 06/06/23Complete Metabolic Panel 06/06/23MA Mammo Screening Bilateral w/ Narinder 06/06/23 [facility] Evaluation + Plan note Future Appointments Appointment Date:11/27/2023 08:00:00 AM Scheduled Provider:ARNALDO PHILLIPS DO Location:[facility] Appointment Type:PC OV Follow Up Future Scheduled TestsThyroid Stimulating Hormone 06/06/23Lipid Profile 06/06/23Complete Metabolic Panel 06/06/23 [facility] Hospital course Narrative No data available for this section [facility] Hospital Discharge instructions No data available for this section [facility] Progress note No data available for this section [facility] Summary Purpose Family History No Family History Records Found No data available for this section No Family History Records Found No data available for this section Advance Directives No Advanced Directives Records FoundNo Advanced Directives Records Found Additional Source Comments INFORMATION SOURCE (unrecogn ized section and content) DATE CREATED AUTHOR AUTHOR'S ANTONINO ATION 06/12/2023 [facility] ([place]) Care Team (unrecognized sect ion and content) Care Team Personnel Name: Toby Mallory Clerk Rylie PT Position: P3 Scheduling - Quilt Maker Advanced Member Role: Other Name: ARNALDO PHILLIPS DO Position: P4 Physician - Primary Care Med Service: Active Provider Member Role: Primary Care Physician Address: Address: [address] [place] [phone] [place] [address] Care Team Related Persons Name: ELMER BARNETT Address: Home [address] [place] [address] [address] [place] [phone] [place] Name: NONE, Care Team Personnel Name: Toby Mallory Clerk Rylie PT Position: P3 Scheduling - Quilt Maker Advanced Member Role: Other Name: ARNALDO PHILLIPS DO Position: P4 Physician - Primary Care Med Service: Active Provider Member Role: Primary Care Physician Address: Address: [address] [place] [phone] [place] [address] Care Team Related Persons Name: ELMER BARNETT Address: Home [address] [place] [address] [address] [place] [phone] [place] Name: NONE, Patient Care team informatio n (unrecognized section and content) Care Team Personnel Name: Toby Mallory Clerk Rylie PT Position: P3 Scheduling - Quilt Maker Advanced Member Role: Other Name: ARNALDO PHILLIPS DO Position: P4 Physician - Primary Care Member Role: Primary Care Physician Address: Address: [address] [place] [phone] [place] Name: UZMA ESPINOZA Member Role: Dentist Care Team Related Persons Name: ELMER BARNETT Address: Home [address] [place] [address] [address] [place] [phone] [place] Name: NONE, Care Team Personnel Name: Toby Mallory Clerk Rylie PT Position: P3 Scheduling - Quilt Maker Advanced Member Role: Other Name: ARNALDO PHILLIPS DO Position: P4 Physician - Primary Care Member Role: Primary Care Physician Address: Address: [address] [facility] [address] [place], [place] [address] Name: UZMA ESPINOZA Member Role: Dentist Care Team Related Persons Name: ELMER BARNETT Address: Home [address] [place], [place] [phone] [place] Name: NONE, FOR RECORDS PERTAINING TO PATIENTS WHO ARE OR HAVE BEEN ENROLLED IN A CHEMICAL DEPENDENCY/SUBSTANCEABUSE PROGRAM, SOME INFORMATION MAY BE OMITTED. This clinical summary was aggregated from multiple sources. Caution should be exercised in using it in the provision of clinical care. This summary normalizes information from multiple sources, and as a consequence, information in this document may materially change the coding, format and clinical context of patient data. In addition, data may be omitted in some cases. CLINICAL DECISIONS SHOULD BE BASED ON THE PRIMARY CLINICAL RECORDS. [facility] [employer] [facility]. provides no warranty or guarantee of the accuracy or completeness of information in this document.
[2023-11-07] MEDS: Lactated Ringers 1,000 ML 15 ML IV (06:38)
--- NOTE | 2023-11-07 07:03 | HP.PCM_ITS ---
HPI - General HPI Narrative YAMILE BARNETT, is a 48 F who presents for bilateral endoscopic carpal tunnel release. RAB and post op instructions discussed. Typically just local anesthetic and OTC meds, no narcotics unless necessary. No changes to H and P. Both wrists marked, will proceed. MR#: [id number] Acct: [id number] Name: YAMILE BARNETT Rep #: [id number] : 1975 Provider: Dr. Anival Roa MD Age/Sex: 48/F Location: [email or web address] Status: Signed Intake Vital Signs 07/06/2209:28 10/16/2309:54 Height 5 ft 2 in 5 ft 2 in Weight: 131 lb 2 oz BMI 24.0 Intake Visit Reasons: BI LAT HANDS Chief Complaint: Carpal tunnel Accompanied by: Self Is patient in pain?: Yes Pain scale (1-10): 3 Allergies No Known Allergies Allergy (Verified 10/16/23 09:57) Medications cyclobenzaprine 5 mg tablet 5 mg PO QHS PRN Pain 10/31/21 [History Confirmed 10/16/23] pravastatin 20 mg tablet 40 mg PO QHS 11/09/21 [History Confirmed 10/16/23] atenolol 50 mg tablet 50 mg PO DAILY 06/29/22 [History Confirmed 10/16/23] citalopram 20 mg tablet 20 mg PO DAILY 06/29/22 [History Confirmed 10/16/23] PFSH Medical History Anxiety Back pain Bilateral carpal tunnel syndrome Depression Endometriosis High cholesterol Hx of sinus tachycardia Hypertension Left ureteral calculus Smoker Wears dentures Surgical History Hx of shoulder surgery Hx of ventral hernia repair S/P section S/P exploratory laparotomy S/P laparoscopic cholecystectomy S/P laparoscopic hysterectomy Family History Mother AsthmaGrandmother Hypertension Cancer skin Social History Smoking Status: Current every day smoker tobacco type: cigarettes and e- cigarettes Electronic Cigarette Use: with nicotine substance use type: does not use HPI BI LAT HANDS Details: This documentation accurately reflects the service provided and the decisions made by me, Dr. Anival Roa MD 10/16/23 [id number]. Part of today?s visit was documented by [ ], acting as scribe. YAMILE BARNETT is a 48 year old F here today for bilat carpal tunnel syndrome. RHD. worse over a year. 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 has to shake them out has to do blood draws and that is difficult. thumb index and middle fingers, using night time splints - couple months not working or helping. some forearm pain, and clumsiness and dropping things. Ortho Exam General General: Yes no acute distress Neurologic: Yes alert and Yes oriented x3 Psychologic: Yes reasonable and appropriate Right Wrist/Hand Skin/Wound: Yes CDI, No Swelling, No Ecchymosis, Yes nail intact and Yes c apillary refill normal Right Wrist: Yes ROM-Extension 0-60, ROM-Flexion 0-80, ROM-Pronation 0-80, ROM- Supination 0-90, Durken's Test, Tinel's and Phalen's; No Thenar Atrophy or Hypothenar Atrophy Motor: EPL: 5, FDP-2: 5, 1st Dorsal Interosseous: 5 and APB: 5 Sensation: Radial: I, Ulnar: I and Median: D Left Wrist/Hand Skin/Wound: Yes CDI, No Swelling, No Ecchymosis, Yes nail intact, Yes capillary refill normal and No erythema Left Wrist: Yes ROM-Extension 0-60, Yes ROM-Flexion 0-80, Yes ROM-Pronation 0- 80, Yes ROM-Supination 0-90, Yes Durken's Test, Yes Tinel's and Yes Phalen's; No Thenar Atrophy and No Hypothenar Atrophy Motor: EPL: 5, FDP-2: 5, 1st Dorsal Interosseous: 5 and APB: 5 Sensation: Radial: I, Ulnar: I and Median: D Supplemental Info Nerve conduction studies from 06/20/2023 the conclusion as 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 Right more affected than the left. Coding Level of Care Code Off vis,new,level 3 Diagnoses Bilateral carpal tunnel syndrome G56.03 Assessment and Plan Assessment and Plan (1) Bilateral carpal tunnel syndrome: Status: Acute Plan: YAMILE BARNETT is a 48 year old F here today for bilat carpal tunnel syndrome. I explained and counselled on the diagnosis prognosis and different treatment options and recovery associated with each of these. The median neuropathy can get worse or more prominent with time. The patient understands they have tried night splinting. They can try rest ice anti-inflammatories activity modifications cortisone injections as well as open or endoscopic surgery. Compared and contrasted open versus endoscopic possibly high rate of incomplete release versus quicker recovery with endoscopic release. The patient would like to go ahead with bilateral endoscopic carpal tunnel release. They do use vaping products that can increase the risk of this as well. I explained that to the patient. Pros and cons risks and benefits were discussed with the patient including but not limited to infection, pain, stiffness, bleeding, damage to surrounding structures, neurovascular injury, recurrence or retear, failure or wear of hardware or fixation, instability, fracture, deep vein thrombosis and pulmonary embolism, anesthetic risks, , patient dissatisfaction, need for further surgery and other risks. Patient understood and wished to proceed with surgery, and signed the informed consent documentation. [facility] Medical History (Updated 10/31/23 @ 13:42 by Shari Burns) Anxiety Back pain Bilateral carpal tunnel syndrome Depression Endometriosis High cholesterol History of kidney stones Hx of sinus tachycardia Hypertension Left ureteral calculus Smoker Wears dentures Wears glasses Home Medications cyclobenzaprine 5 mg tablet 5 mg PO QHS PRN Pain 10/31/21 [History Last Taken 11/04/23] pravastatin 20 mg tablet 40 mg PO QHS 11/09/21 [History Last Taken 11/06/23] atenolol 50 mg tablet 50 mg PO DAILY 06/29/22 [History Last Taken 11/07/23] citalopram 20 mg tablet 20 mg PO DAILY 06/29/22 [History Last Taken 11/06/23] Allergy/AdvReac Type Severity Reaction Status Date / Time No Known Allergies Allergy Verified 11/07/23 06:25 Family History Mother Asthma Grandmother Hypertension Cancer skin Surgical History Hx of shoulder surgery Hx of ventral hernia repair S/P section S/P exploratory laparotomy S/P laparoscopic cholecystectomy S/P laparoscopic hysterectomy Social History Smoking Status: Former smoker Electronic Cigarette Use: with nicotine substance use type: does not use Vital Signs Vital Signs Vital Signs: 11/07/23 06:25 11/07/23 06:25 Temperature 97.3 F L Temperature Source Temporal Pulse Rate 72 Respiratory Rate 18 Respiratory Pattern Normal Blood Pressure 119/85 H Blood Pressure Mean 96 Blood Pressure Source Manual Blood Pressure Position Semi-Fowlers Blood Pressure Location Right Arm Pulse Ox 99 Oxygen Delivery Method Room Air Weight Weight: 130 lb 1.164 oz Body Mass Index (BMI) 23.8
[2023-11-07] MEDS: Cefazolin 2 GM in 0.9% Normal Saline (100mL Bag) 100 ML IV (07:25)
[2023-11-07] MEDS: Bupivacaine 0.25% 30 ML Vial (07:45)
--- NOTE | 2023-11-07 08:10 | PCM.OPRPT ---
Problems Associated Problem List Diagnoses (1) Bilateral carpal tunnel syndrome: Report of Operation Date of Procedure: 11/07/23 Pre-Operative Diagnosis: Bilateral carpal tunnel syndrome Post-Operative Diagnosis: Same Surgery/Procedure Performed:: Bilateral endoscopic carpal tunnel release Surgeon: Anival Roa Type of Anesthesia: Local and MAC Anesthesiologist: Celso Parsons Estimated Blood Loss (mL): 20 Description of Procedure: Patient was brought to the operating room theater.? The patient was administered 2g iv ancef prior to the start of the procedure.? Placed supine on the operating room table.? Anesthesia induced.? SCDs on the legs.? Tourniquet applied to both upper operative extremity, appropriately padded. Arm table used. Operative extremity bilat UEs prepped and draped in the usual sterile fashion with chlorhexidine-based prep solution allowing over 3 minutes drying time prior to draping.? Preoperative timeout performed to confirm the site patient and the surgery. Did the same procedure on both wrists. I used the [employer] puma scope center line endoscopic carpal tunnel kit / technique. 5 cc 0.25% bupivicaine at incision site. ? Tourniquet up at 250mmg. I made a transverse 2 cm incision in line with the? transverse wrist crease.? This was in line with the fourth digit.? I carried the dissection down through skin and subcutaneous tissue achieved meticulous hemostasis. Just ulnar to palmaris tendon.? I incised the antebrachial fascia.? I passed sequential dilators into the carpal tunnel along the radial border of the Guyon's canal aiming for the fourth digit with the hand in extension. I used a synovial elevator to identify the transverse fibers of the transverse carpal tunnel ligament.? Passed the scope into the carpal tunnel. Once I had identified the full proximal and distal extent of the ligament I fully released the ligament under direct visualization by deploying the blade and slowly withdrawing the scope made sequential passes until I no longer felt tension as well as the entire extent of the ligament was released under direct visualization.? Sounded the tunnel with potter tenotomy scissors, complete release, no bands. Pictures taken and saved before and after release. Tourniquet let down. Wound thoroughly irrigated.?Meticulous hemostasis achieved.? Incisions closed with 3-0 monocryl for the skin.?Skin was cleaned and dried. steri strips, adaptic and 4x4 gauze and rosibel wrap. Patient woken up,? transferred off the operating room table and taken to postanesthetic care unit in stable condition. All sponge needle instrument counts were correct no complications.? Plan for the patient to be discharged home according to day surgery criteria when they are comfortable. Follow-up in the office in 2 days time. Gentle ROM hand and elbow no heavy lifting. cpt 27739 x 2 Complications none Admit VTE Documentation VTE Present on Admission: No VTE Mechan Device Prophylaxis: SCD's VTE Pharm Prophylaxis ordered?: No Reason prophylaxis not ordered:: Treatment Not Indicated Procedures Musculoskeletal 20xxx-29xxx: Other Procedure See Report
--- NOTE | 2023-11-07 08:13 | DCINST_ITS ---
Discharge Instructions Diet Discharge Diet: No restrictions Activity Discharge Activity: Return to Normal Activity Lifting Restrictions: no heavy lifting or grippiping Keep extremity elevated above heart level: Operative Extremity Dressing / Incision Call your doctor if your incision/area has: Continuous Slow Oozing, Sudden Increased Bleeding, Increased Pain/ Swelling, Increased Redness, Foul Smelling Discharge and Swelling at the incision site Change Dressing in: leave in place till F/U Follow Up Care Please Follow Up With: Anival Roa MD When: 2 days Test Results: Test results from this visit will be discussed in further detail at your follow- up appointment, if applicable. Discharge Plan Admission Attending Provider: Anival Roa Primary Care Provider: Virginia Singleton Discharge Orders/Prescriptions Prescriptions: No Action cyclobenzaprine 5 mg Tablet 5 mg PO QHS PRN (Reason: Pain) pravastatin 20 mg Tablet 40 mg PO QHS citalopram 20 mg tablet 20 mg PO DAILY Patient Comments: TAKE 1 TABLET BY MOUTH EVERY DAY FOR 14 DAYS. STOP LEXAPRO. atenolol 50 mg tablet 50 mg PO DAILY Patient Comments: TAKE 1 TABLET BY MOUTH EVERY DAY - INCREASE DOSE Referrals / Follow Up: Virginia Singleton DO [Primary Care Provider] - Anival Roa MD [Med Staff - Active Staff] - Disposition Disposition (needs filled in before D/C Order can be placed): Home, Self Care
== END 2023-11-07 09:09 | disposition home or self-care (01) ==
LOC: SDC 06:01 → AC 06:01
PROVIDERS: PCP Family Medicine; Referring Provider Orthopaedic Surgery Sports Medicine; Visit Provider Orthopaedic Surgery Sports Medicine
PROC: (CPT 29848; principal; 2023-11-07 07:15)
DX: G56.03 Carpal tunnel syndrome, bilateral upper limbs (principal); F17.210 Nicotine dependence, cigarettes, uncomplicated; F17.290 Nicotine dependence, other tobacco product, uncomplicated; I10 Essential (primary) hypertension; E78.00 Pure hypercholesterolemia, unspecified; F41.9 Anxiety disorder, unspecified; F32.A Depression, unspecified; Z79.899 Other long term (current) drug therapy
CPT/HCPCS: 29848; 01810; J7120; J2405

== ENCOUNTER → 2024-12-29 | Outpatient (CLI) | payer OTHER, SELFPAY ==
[2024-12-29 17:56] LABS: Erythrocyte Sedimentation Rate 9 mm/hr (0-30)
[2024-12-29 18:11] LABS: AST(SGOT) 25 U/L (15-37); Alanine Aminotransfer ALT/SGPT 55 U/L (13-56); Albumin, Serum 3.9 g/dL (3.2-5.0); Alkaline Phosphatase 132 U/L (45-117); Anion Gap 5 (5-15); BUN 17 mg/dL (7-18); Calcium,Total 9.5 mg/dL (8.5-10.1); Chloride 102 mmol/L (98-107); Creatinine, Serum 0.81 mg/dL (0.55-1.02); EST Glomerular Filtration Rate 79 mL/min (>60); Est Glom Filt Rate - Afr Amer 96 mL/min (>60); Glucose 96 mg/dL (74-106); Potassium 4.3 mmol/L (3.5-5.1); Protein, Total 7.9 g/dL (6.4-8.2); Sodium Level 138 mmol/L (136-145)
[2024-12-31 15:08] LABS: Anti-Smooth Muscle ABS 4 Units (0-19); GGTP 165 IU/L (0-60)
[2025-01-01 12:08] LABS: Anti-Mitochondrial AB <20.0 Units (0.0-20.0); Anti-Nuclear Antibody Test Negative (.)
== END | disposition home or self-care (01) ==
LOC: MTLAB 15:04
PROVIDERS: PCP Family Medicine; Referring Provider Internal Medicine Gastroenterology; Visit Provider Internal Medicine Gastroenterology
DX: K75.9 Inflammatory liver disease, unspecified (principal)
CPT/HCPCS: 36415; 80053; 82977; 83516; 85652; 86038

== ENCOUNTER → 2025-05-19 | Outpatient (CLI) | payer OTHER, SELFPAY ==
--- NOTE | 2025-05-19 09:51 | US_ITS ---
PROCEDURE: ABD LIMITED W/ ELASTOGRAPHY REASON FOR EXAM: ELEVATED LIVER ENZYMES COMPARISON: None. TECHNIQUE: Right upper quadrant abdominal ultrasound. [employer] ElastQ Imaging shear wave elastography for non-invasive assessment of liver tissue stiffness. [employer] EPIQ Elite. FINDINGS: LIVER: Size: Unremarkable Length: 16.7 cm Echotexture: Diffusely echogenic suggesting fatty infiltration Contour: Normal Lesions: None identified Elastography: EQI Med: 6.5 kPa EQI Med Conor: 1.5 m/s IQR/Med: 12.3 %* GALLBLADDER: Surgically absent. COMMON BILE DUCT: Dilated measuring up to 9.8 mm. This may be normal for the post cholecystectomy state. . PANCREAS: Normal Visualized portions of the right kidney are unremarkable. There is a 1.1 cm x 0.9 cm 1 cm cyst in the lateral midportion of the right kidney. No right upper quadrant ascites. US/ABD Limited w/ Elastography IMPRESSION: Mild hepatic fibrosis. Fatty infiltration of the liver. Small right renal cyst. Status post cholecystectomy. Reference Values: SRU <1.37 m/s (5.7kPa): No to mild fibrosis 1.37 m/s - 2.2 m/s: Moderate to severe fibrosis >2.2 m/s (15kPa): Significant fibrosis / cirrhosis METAVIR Score F2 or higher: 1.34 m/s (5.7kPa) F3 or higher: 1.55 m/s (7.3kPa) F4: 1.80 m/s (10kPa) * If the IQR/Med is >30%, the variance in the measurements is a large and the a ccuracy of the measurement may be in question. Reading Location: [id number]
== END | disposition home or self-care (01) ==
PROVIDERS: PCP Family Medicine; Referring Provider Internal Medicine; Visit Provider Internal Medicine
DX: R74.8 Abnormal levels of other serum enzymes (principal); R10.9 Unspecified abdominal pain
CPT/HCPCS: 76705; 76981

== ENCOUNTER 2025-07-30 10:53 | Day surgery (SDC) | payer OTHER, SELFPAY ==
[2025-07-30] VITALS (9 sets, daily range): BP systolic 81–120; BP diastolic 53–88; PULSE 77–92; RESP 12–18; TEMP 36.2–37.4; O2SAT 97–99; BMI 23.8
[2025-07-30] MEDS: Lactated Ringers 1,000 ML 15 ML IV (11:31)
--- NOTE | 2025-07-30 12:03 | PRE.ANES_ITS ---
ASA Classification* ASA Classification ASA Classification: 2 Assessment & Plan Anesthesia* Anesthesia Assessment Anesthesia Assessment: Discussed sedation and/or anesthesia options, risks, benefits, and alternatives with patient/parents/legal guardian/POA. Questions invited. The patient/parents/legal guardian/POA seems to understand and agrees to proceed with anesthesia plan. Reviewed the physical assessment, medical history, allergy history and patient home medications list prior to surgery/procedure/anesthetic and documented any changes. Performed airway and anesthesia risk assessments. Anesthesia Type Anesthesia Type: MAC History Source History Obtained from:: Patient and Chart Anesthesia Focused Assessment* Temperature: 97.2 F Pulse Rate: 86 Blood Pressure: 120/69 Respiratory Rate: 16 Pulse Ox: 97 Oxygen Delivery Method: Room Air Airway Assessment Mouth opens: >3 cm Mallampati Score: I Teeth Condition: Dentures (Patient has upper and lower dentures. They will stay in.) Neck Range of motion (ROM): Full ROM Labs Anesthesia Preop lab: CBC WBC, (4.4-11.0) 8.4 K/mm3 10/31/21, 10:30 RBC, (4.2-5.4) 4.60 M/mm3 10/31/21, 10:30 Hgb, (12.0-15.0) 12.6 g/dL 10/31/21, 10:30 Hct, (37-47) 38.6 % 10/31/21, 10:30 Plt Count, (150-450) 390 K/mm3 10/31/21, 10:30 CHEMISTRY Potassium, (3.5-5.1) 4.3 mmol/L 12/29/24, 15:06 Sodium, (136-145) 138 mmol/L 12/29/24, 15:06 BUN, (7-18) 17 mg/dL 12/29/24, 15:06 Creatinine, (0.55-1.02) 0.81 mg/dL 12/29/24, 15:06 Glucose, (74-106) 96 mg/dL 12/29/24, 15:06 COAG Urine Test Negative Negative 10/07/15, 12:05 Pre-Assessment Diagnosis/Proposed Procedure Planned Operative Procedure(s): COLONOSCOPY Anesthesia History 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 When Was Last Pacemaker Check QUESTION #4 FULL TEXT: You/Your Family Experience fever (hyperthermia) with Anesthesia Last Oral Intake Last Oral intake: Last Oral Intake NPO since 09:00 07/30/25 11:28 Meds taken in AM with sips of No 07/30/25 11:28 water? 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 Female Yes 07/27/25 13:31 HX of Motion Sickness No 07/27/25 13:31 HX of N/V After Surgery No 07/27/25 13:31 Non-Smoker No 07/27/25 13:31 Duration of Surgery greater No 07/27/25 13:31 than 60 minutes Number of Risk Factors 1 07/27/25 13:31 PONV Score Low Risk 07/27/25 13:31 Height & Weight Height & Weight: Anesthesia: Height & Weight Height 5 ft 2 in 07/30/25 11:28 Weight: 59 kg 07/30/25 11:28 Body Mass Index (BMI) 23.8 07/30/25 11:28 Respiratory Assessment Respiratory Assessment - produce laborer: Respiratory Tract Infection Hx - produce laborer Hx Respiratory Tract Infection No 07/27/25 13:31 STOP Sleep Apnea STOP Sleep Apnea - produce laborer: STOP Sleep Apnea - produce laborer Hx Hypertension Yes: RESOLVED AFTER WT LOSS 07/27/25 13:31 Hx Sleep Apnea No 07/27/25 13:31 CPAP No 11/07/23 08:15 BIPAP No 06/29/22 12:50 Do you snore loudly (louder No 07/27/25 13:31 than talking or can be heard Do you often feel tired/ No 07/27/25 13:31 fatigued/ sleepy during daytime? Has anyone observed you stop No 07/27/25 13:31 breathing during sleep? STOP Results Negative 07/27/25 13:31 QUESTION #5 FULL TEXT : Do you snore loudly (louder than talking or can be heard through closed doors)? 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 Specify any problems Hx of Preganancy in last 3 No 07/27/25 13:31 Months Nurse Filling Out Transfusion MGRIFFITH 07/27/25 13:31 & Questions: Date: 07/27/25 07/27/25 13:31 Time: 13:33 07/27/25 13:31 Patient unable to answer at this time (ie. confused, unrespo /Reproduction History /Reproductive History - produce laborer: /Reproductive Hx- produce laborer Hx Now No 07/27/25 13:31 Gestational Age (in weeks): EDC: Hx Hx Para Hx Section SAB No 07/27/25 13:31 Active Medications Active Medications: Current Medications Generic Name Dose Route Start Last Admin Trade Name Freq PRN Reason Stop Dose Admin Lactated Ringer's 1,000 mls @ 15 mls/hr 07/30/25 11:30 07/30/25 11:31 IV 15 mls/hr .Q48H ARTURO Administration PFSH Medical History History of hypertension Abnormal intentional weight loss Elevated liver enzymes Wears glasses History of kidney stones Bilateral carpal tunnel syndrome Left ureteral calculus Wears dentures Depression Anxiety High cholesterol Back pain Smoker Hx of sinus tachycardia Endometriosis Home Medications ?Medication ?Instructions ?Recorded ?Last Taken ?Type hydroxyzine HCl 50 mg tablet 25 mg PO TID PRN itching 02/17/25 Unknown History multivitamin 1 tab PO QDAY 02/17/25 Unkno wn History multivitamin with minerals 1 tab PO QDAY 02/17/25 Unkn own History (Hair,Skin and Nails tablet) sertraline 100 mg tablet 100 mg PO QDAY 02/17/25 Unkn own History Allergy/AdvReac Type Severity Reaction Status Date / Time simvastatin AdvReac Severe Muscle Verified 07/30/25 11:27 aches Family History Mother Asthma Grandmother Hypertension Cancer skin Surgical History History of carpal tunnel release of both wrists History of Hx of appendectomy Hx of ventral hernia repair Hx of shoulder surgery S/P laparoscopic cholecystectomy S/P exploratory laparotomy S/P laparoscopic hysterectomy S/P section Social History Smoking Status: Current every day smoker tobacco type: e-cigarettes Electronic Cigarette Use: with nicotine alcohol intake: never details: occasional alcohol use 17 years ago substance use type: does not use Review of Systems (Anesthesia) ROS Narrative System reviewed and no additional complaints, except as documented.
--- NOTE | 2025-07-30 12:26 | HP.PCM_ITS ---
[facility] - General General Date of Admission: 07/30/25 Date of Service: 07/30/25 Chief Complaint: Screening colonoscopy HPI Narrative YAMILE BARNETT, is a 49 F who presents today for a screening colonoscopy. She has never had a colonoscopy in the past. She has a past medical history of metabolic associated liver disease. He does not take any medicines for that. She does have a past medical history of mild anxiety and depression. These are controlled with medications. REPLACED BY [facility] Medical History History of hypertension Abnormal intentional weight loss Elevated liver enzymes Wears glasses History of kidney stones Bilateral carpal tunnel syndrome Left ureteral calculus Wears dentures Depression Anxiety High cholesterol Back pain Smoker Hx of sinus tachycardia Endometriosis Home Medications ?Medication ?Instructions ?Recorded ?Last Taken ?Type hydroxyzine HCl 50 mg tablet 25 mg PO TID PRN itching 02/17/25 Unknown History multivitamin 1 tab PO QDAY 02/17/25 Unkno wn History multivitamin with minerals 1 tab PO QDAY 02/17/25 Unkn own History (Hair,Skin and Nails tablet) sertraline 100 mg tablet 100 mg PO QDAY 02/17/25 Unkn own History Allergy/AdvReac Type Severity Reaction Status Date / Time simvastatin AdvReac Severe Muscle Verified 07/30/25 11:27 aches Family History Mother Asthma Grandmother Hypertension Cancer skin Surgical History History of carpal tunnel release of both wrists History of Hx of appendectomy Hx of ventral hernia repair Hx of shoulder surgery S/P laparoscopic cholecystectomy S/P exploratory laparotomy S/P laparoscopic hysterectomy S/P section Social History Smoking Status: Current every day smoker tobacco type: e-cigarettes Electronic Cigarette Use: with nicotine alcohol intake: never details: occasional alcohol use 17 years ago substance use type: does not use ROS Constitutional Constitutional: Denies fatigue, fever(s), poor appetite, weight gain or weight loss Gastrointestinal Gastrointestinal: Denies belching, bloating, change in bowel habits, change in stool character, chewing difficulty, coffee ground emesis, constipation, cramping, diarrhea, dyspepsia, dysphagia, early satiety, excessive flatus, fecal incontinence, heartburn, hematemesis, hematochezia, hemorrhoids, loose stools, melena, nausea, odynophagia, rectal bleeding, tenesmus, vomiting or weight changes Vital Signs Vital Signs Vital Signs: 07/30/25 11:28 07/30/25 11:28 07/30/25 12:09 Temperature 97.2 F L 97.2 F L Temperature Source Temporal Pulse Rate 86 86 Respiratory Rate 16 16 Respiratory Pattern Normal Blood Pressure 120/69 120/69 Blood Pressure Mean 86 Blood Pressure Source Monitor Blood Pressure Position Semi-Fowlers Blood Pressure Location Left Arm Pulse Ox 97 97 Oxygen Delivery Method Room Air Room Air Weight Weight: 130 lb 1.164 oz Body Mass Index (BMI) 23.8 Physical Exam Const alert, oriented x3, no apparent distress and healthy appearing General Appearance: cooperative GI normal to inspection, nondistended, normoactive bowel sounds, soft to palpation, non-tender and non-distended Percussion: normal to percussion Rectal Exam: deferred Assessment & Plan Assessment/Plan (1) LLQ abdominal pain: (2) Encounter for screening colonoscopy: PLAN: She was explained alternatives, risk, benefits, and with any bleeding, infection, sepsis, perforation, need emergent urgent . She will have an ASA 3.
--- NOTE | 2025-07-30 12:59 | OP.PROVAT_ITS ---
07/30/2025 Virginia Davis Do Re : Colonoscopy procedure for Helen Carreon Dear Susan This procedure was performed on July. My impressions and recommendations are as follows: Impressions : - Significant colonic spasm consistent with irritable bowel syndrome. - The examination was otherwise normal on direct and retroflexion views. - No specimens collected. Recommendations : - Discharge patient to home. - Resume previous diet. - Continue present medications. - Repeat colonoscopy in 10 years for screening purposes. My findings are described in the full procedure note, which is enclosed. If I can be of further assistance, please feel free to contact me at . Sincerely, Wicho Grossman, 07/30/2025 12:58:41 PM This report has been signed electronically.
--- NOTE | 2025-07-30 12:59 | OP.COLON_ITS ---
Patient Name: Helen Carreon Procedure Date: 07/30/2025 12:33 PM Date of : 1975 Age: 49 Procedure: Colonoscopy Indications: Screening for colorectal malignant neoplasm Providers: Wicho Grossman DO Referring MD: Virginia Davis Do Medicines: Monitored Anesthesia Care Patient Profile: This is a 49 year old female. Refer to note in patient chart for documentation of history and physical. Last Colonoscopy: none. The patient's first colonoscopy is today. Complications: No immediate complications. Procedure: Pre-Anesthesia Assessment: - Prior to the procedure, a History and Physical was performed, and patient medications and allergies were reviewed. The patient is competent. The risks and benefits of the procedure and the sedation options and risks were discussed with the patient. All questions were answered and informed consent was obtained. Patient identification and proposed procedure were verified by the physician in the pre-procedure area. Mental Status Examination: alert and oriented. Airway Examination: normal oropharyngeal airway and neck mobility. Respiratory Examination: clear to auscultation. CV Examination: normal. Prophylactic Antibiotics: The patient does not require prophylactic antibiotics. Prior Anticoagulants: The patient has taken no anticoagulant or antiplatelet agents. ASA Grade Assessment: II - A patient with mild systemic disease. After reviewing the risks and benefits, the patient was deemed in satisfactory condition to undergo the procedure. The anesthesia plan was to use monitored anesthesia care (MAC). Immediately prior to administration of medications, the patient was re-assessed for adequacy to receive sedatives. The heart rate, respiratory rate, oxygen saturations, blood pressure, adequacy of pulmonary ventilation, and response to care were monitored throughout the procedure. The physical status of the patient was re-assessed after the procedure. After I obtained informed consent, the scope was passed under direct vision. Throughout the procedure, the patient's blood pressure, pulse, and oxygen saturations were monitored continuously. The Colonoscope was introduced through the anus and advanced to the cecum, identified by appendiceal orifice and ileocecal valve. The colonoscopy was performed without difficulty. The patient tolerated the procedure well. The quality of the bowel preparation was adequate. The ileocecal valve, appendiceal orifice, and rectum were photographed. Scope In: 12:40:33 PM Scope Withdrawal Time 0 hours 6 minutes 47 seconds Scope Out: 12:54:31 PM Total Procedure Duration Time 0 hours 13 minutes 58 seconds Findings: The perianal and digital rectal examinations were normal. There was significant spasm in the recto-sigmoid colon, in the sigmoid colon, in the descending colon and at the hepatic flexure. The exam was otherwise without abnormality on direct and retroflexion views. Impression: - Significant colonic spasm consistent with irritable bowel syndrome. - The examination was otherwise normal on direct and retroflexion views. - No specimens collected. Recommendation: - Discharge patient to home. - Resume previous diet. - Continue present medications. - Repeat colonoscopy in 10 years for screening purposes. Procedure Code(s): --- Professional --- G0121, Colorectal cancer screening; colonoscopy on individual not meeting criteria for high risk CPT copyright 2021 [employer]. All rights reserved. The codes documented in this report are preliminary and upon press smith helper review may be revised to meet current compliance requirements. Wicho Grossman DO 07/30/2025 12:58:41 PM This report has been signed electronically. Number of Addenda: 0 Note Initiated On: 07/30/2025 12:33 PM
--- NOTE | 2025-07-30 13:02 | PCM.POST.ANE ---
Anesthesia: Postop Eval I Current Vital Signs Temperature: 99.3 F Pulse Rate: 86 Blood Pressure: 98/58 Respiratory Rate: 18 Pulse Ox: 99 Oxygen Delivery Method: Room Air Assessment Airway patent: Yes Spontaneous unlabored respirations: Yes Mental status: Asleep nausea: No Vomiting: No Anesthesia Complication: No Fluid Hydration Crystalloid volume administer (ml): 400 Total IV fluid infused: 400 Progress Note Anesthesia document: Postop Eval 1 completed: Yes
--- NOTE | 2025-07-30 14:28 | PCM.POSTANE2 ---
Anesthesia Postop Eval I Sum Postop Eval Completion status Anesthesia document: Postop Eval 1 completed: Yes Anesthesia Postop Eval I Summary Anesthesia Postop Eval I Summary: Anesthesia Postop Eval I: Assessment Summary Airway patent Yes 07/30/25 13:03 [email or web address] Spontaneous unlabored Yes 07/30/25 13:03 [email or web address] respirations Mental status Asleep 07/30/25 13:03 [email or web address] nausea No 07/30/25 13:03 [email or web address] Vomiting No 07/30/25 13:03 [email or web address] Anesthesia Postop Eval I: Fluid Summary Crystalloid volume administer 400 07/30/25 13:03 [email or web address] (ml) Colloids volume administered ( ml) Blood Product volume administered (ml) Total IV fluid infused 400 07/30/25 13:03 [email or web address] Anesthesia Postop Eval I: Summary Notes Anesthesia Complication No 07/30/25 13:03 [email or web address] Anesthesia Complication Comment: Post-operative progress note Anesthesia: Postop Eval II Evaluation Mental status: Awake and Calm Pain Level: 0 nausea: No Vomiting: No Complications Anesthesia Complication: No
== END 2025-07-30 13:57 | disposition home or self-care (01) ==
LOC: EN 10:53 → AC 10:54
PROVIDERS: PCP Family Medicine; Referring Provider Family Medicine; Visit Provider Internal Medicine Gastroenterology
PROC: 0DJD8ZZ Inspection of Lower Intestinal Tract, Via Natural or Artificial Opening Endoscopic (ICD-10-PCS; CPT 45378; principal; 2025-07-30 12:10)
DX: Z12.11 Encounter for screening for malignant neoplasm of colon (principal); I10 Essential (primary) hypertension; F17.290 Nicotine dependence, other tobacco product, uncomplicated; E78.00 Pure hypercholesterolemia, unspecified; K58.9 Irritable bowel syndrome, unspecified
CPT/HCPCS: 45378; J2405